=== PATIENT | female | born 1995 | race Caucasian/White ===

== ENCOUNTER 2018-12-22 18:33 | Observation (INO) ==
[2018-12-22] MEDS ORDERED: 0.9 % Sodium Chloride 1,000 ML IVC ONE (20:10)
[2018-12-22 21:10] LABS: BUN/Creatinine Ratio 11 (6-26); Blood Urea Nitrogen 7 mg/dL (6-20); Carbon Dioxide 23 mEq/L (23-29); Chloride 108 mEq/L (98-107); Glucose 78 mg/dL (70-105); Osmolality,Calculated 289 (280-300); Potassium 4.1 mEq/L (3.5-5.1); Sodium 141 mEq/L (136-145); eGFR For African Americans > 60 (> 60); eGFR For Non-African Americans > 60 (> 60)
[2018-12-22 21:16] LABS: Bilirubin,Urine Negative (Negative); Blood,Urine Negative (Negative); Glucose,Urine (UA) Normal (Normal); Ketones,Urine Negative (Negative); Leukocyte Esterase,Urine Small (Negative); Nitrite,Urine Positive (Negative); Protein,Urine Negative (Neg-Trace); Specific Gravity,Urine 1.021 (1.010-1.025); Urobilinogen,Urine Normal (Normal)
[2018-12-22 21:17] LABS: Bacteria,Urine Many per hpf (None-Few); Hyaline Casts,Urine None Seen per lpf (None-Few); Squamous Epithelial Cell,Urine Many per lpf (None-Few)
[2018-12-22 21:19] LABS: Clarity,Urine Slightly Hazy (Clear); Color,Urine Yellow (Yellow)
--- NOTE | 2018-12-22 21:26 | Emergency Department Note ---
Disposition Clinical Impression: Seizure, Weakness Closed head injury Qualifiers: Encounter type: initial encounter Qualified Code(s): S09.90XA - Unspecified injury of head, initial encounter Abdominal pain Qualifiers: Abdominal location: generalized Qualified Code(s): R10.84 - Generalized abdominal pain Disposition: Admitted As Inpatient Condition: Fair Instructions: Abdominal Pain (ED), Recurrent Seizures in Adults (ED) Referrals: Ame Gonsalez MD [Partnered Physician] - [facility] [Outside] Forms: ED Satisfaction Letter Time of Disposition: 22:40 General Adult HPI - General Chief complaint: ED Syncope Stated complaint: Syncope ,Vomiting, Abdominal pain Time Seen by Provider: 12/22/18 19:30 Source: patient Limitations: no limitations Nursing Notes Reviewed: Yes Vital Signs Reviewed: Yes - History of Present Illness HPI Narrative: She has a history of seizures but is not taking her medication because she cannot afford it and she did have one seizure 3 days ago to yesterday and then 3 today. She did fall and hit her head. Does have some numbness and some weakness of the right side of her body and this has been present for the last 3 days. She did have urinary continence but no biting of the tongue or blood in the mouth. No fevers. Has had some vomiting and diarrhea. Has had some blood in the stool. Social history: Smoker, occasional alcohol, no drugs Pain Scale: 6 - Related Data Previous Rx's Medication Instructions Recorded Dicyclomine [Bentyl] 10 mg PO QID #8 capsule 12/21/18 LevETIRAcetam [Keppra] 500 mg PO BID #14 tablet 12/21/18 Omeprazole [PriLOSEC] 20 mg PO BIDAC #14 cap 12/21/18 Ondansetron ODT [Zofran ODT] 4 mg SL Q4HR #12 tab.rapdis 12/21/18 Allergies Allergy/AdvReac Type Severity Reaction Status Date / Time prednisone AdvReac See Verified 09/22/18 14:58 Comments All systems ED: reviewed and negative except as stated. Past Medical History - Past Medical History Medical history: Reports: asthma, seizures Surgical history: Reports: no surgical history Psychiatric history: Reports: anxiety, bipolar, depression VIDEO INTERN history: Reports: other - Social History Smoking Status: Current every day smoker Smokeless Tobacco Status: No Alcohol use: Reports: occasionally Drug use: Reports: marijuana Physical Exam CONSTITUTIONAL: Well-appearing; well-nourished; A&O X3, in no apparent distress HEAD: Normocephalic; atraumatic. EYES: PERRL, EOMI, no scleral icterus NOSE: The nose is normal in appearance without rhinorrhea NECK: Supple without rigidity, no [place] RESP: Normal chest excursion with respiration; breath sounds clear and equal bilaterally; no wheezes, rhonchi, or rales CARD: Regular rhythm, without murmurs, rub or gallop ABD: Non-distended; with moderate generalized discomfort but more discomfort in the lower abdomen which is symmetric. The upper abdomen has minimal discomfort. The entire abdomen is soft, without rigidity, rebound or guarding. Normal appearance SKIN: Normal for age and race; warm and dry; no apparent lesions, no rash NEUROLOGICAL: Patient is alert and oriented times three. Cranial nerves III- XII are intact. Sensory and motor functions are intact. Strength is decreased on the right side lower extremity flexion and extension 4/5 but upper extremity is 5/5. Finger to nose testing is equal and normal bilaterally. - General Limitations: no limitations General appearance: alert, in no apparent distress Course Vital Signs Temperature 98.7 F 12/22/18 18:57 Pulse Rate 78 12/22/18 18:57 Respiratory Rate 18 12/22/18 18:57 Blood Pressure 129/86 12/22/18 18:57 O2 Sat by Pulse Oximetry 100 12/22/18 18:57 Temperature 98.7 F 12/22/18 18:57 Pulse Rate 64 12/22/18 19:43 Respiratory Rate 16 12/22/18 19:43 Blood Pressure 112/83 12/22/18 19:43 O2 Sat by Pulse Oximetry 97 12/22/18 19:43 Oxygen Delivery Oxygen Delivery Room Air Medical Decision Making - [facility] Narrative Medical decision making narrative: Patient does have residual right-sided weakness which is unusual for seizure and for that reason she will be admitted. Head CT is pending. I just ordered an abdominal CT after the exam showed that she has significant generalized discomfort. We are waiting for the urine sample Wilmer the test. She is sexually active with her and she does not use control. Results pending. I did review the EKG showing normal sinus rhythm with a rate of 71 without acute ischemic change [address] Gonsalez who rec generic keppra 500mg BID with first dose to be given here and I did give 1000 mg here. He said he will see her in the office a nd so what I will do is have her get only one week's worth of the medicine and she can call Tuesday for an appointment to be seen the beginning of the week and they can help her with either yazmin medications or lower cost medications. Patient will be discharged. I did review the CT result. I do not see any bleeding or anything that required surgical repair. She states subjectively her abdominal pain significant improved. Head CT did not show any bleeding. She does have a headache and I will give her some Tylenol patient is bright and alert and comfortable in the bed. She is ambulatory. I did see her multiple times. She will be discharged. 2239 The patient has residual right-sided weakness and I did go back and reassessment further discussion. Whereas one consideration would have been for discharge with the fact that she had the syncopal episode here and the recurrent right-s ided weakness safer course would be to have her admitted and I did discuss with her this plan and she is in agreement. I do have the hospitalist paged. It is concerning also for multiple seizures as well as the syncopal episode that she had did not involve seizure activity when she was in the bathroom here. 4 I did speak with the hospitalist who accepts the patient for admission 1132 - Medical Records Medical records reviewed: Yes I reviewed the patient's medical records. - Lab Data Lab results reviewed: Yes I reviewed the patient's lab results. Result diagrams: 12/22/18 21:56 12/22/18 20:38 Lab Results 12/22/18 12/22/18 12/22/18 Range/Units 20:38 20:38 21:00 WBC (4.3-11.1) K/mcL RBC (3.82-4.97) M/mcL Hgb (11.5-15.4) g/dL Hct (35.3-44.9) % MCV (83.0-100.0) fL MCH (28.0-33.3) pg MCHC (31.6-35.5) g/dL RDW (11.5-14.5) % Plt Count (140-400) K/mcL MPV (9.4-12.4) fL Sodium 141 (136-145) mEq/L Potassium 4.1 (3.5-5.1) mEq/L Chloride 108 H (98-107) mEq/L Carbon Dioxide 23 (23-29) mEq/L BUN 7 (6-20) mg/dL Creatinine 0.63 (0.60-1.20) mg/dL Est GFR ( Amer) > 60 (> 60) Est GFR (Non-Af Amer) > 60 (> 60) BUN/Creatinine Ratio 11 (6-26) Glucose 78 (70-105) mg/dL Calculated Osmolality 289 (280-300) Calcium 10.0 (8.6-10.3) mg/dL Urine Color Yellow (Yellow) Urine Clarity Slightly Hazy (Clear) Urine pH 7.0 (5.0-8.0) pH Units Ur Specific [place] 1.021 (1.010-1.025) Urine Protein Negative (Neg-Trace) mg/dL Urine Glucose (UA) Normal (Normal) mg/dL Urine Ketones Negative (Negative) mg/dL Urine Blood Negative (Negative) Urine Nitrite Positive A (Negative) Urine Bilirubin Negative (Negative) Urine Urobilinogen Normal (Normal) mg/dL Ur Leukocyte Esterase Small H (Negative) Urine Microscopic RBC 5-15 H (0-3) per hpf Urine Microscopic WBC 5-15 H (0-3) per hpf Ur Squamous Epith Cells Many H (None-Few) per lpf Urine Bacteria Many H (None-Few) per hpf Hyaline Casts None Seen (None-Few) per lpf Urine Test (Negative) Specimen Rejected Clotted 12/22/18 12/22/18 Range/Units 21:00 21:56 WBC 8.6 (4.3-11.1) K/mcL RBC 4.63 (3.82-4.97) M/mcL Hgb 13.9 (11.5-15.4) g/dL Hct 40.3 (35.3-44.9) % MCV 87.0 (83.0-100.0) fL MCH 30.0 (28.0-33.3) pg MCHC 34.5 (31.6-35.5) g/dL RDW 12.0 (11.5-14.5) % Plt Count 138 L (140-400) K/mcL MPV 11.6 (9.4-12.4) fL Sodium (136-145) mEq/L Potassium (3.5-5.1) mEq/L Chloride (98-107) mEq/L Carbon Dioxide (23-29) mEq/L BUN (6-20) mg/dL Creatinine (0.60-1.20) mg/dL Est GFR ( Amer) (> 60) Est GFR (Non-Af Amer) (> 60) BUN/Creatinine Ratio (6-26) Glucose (70-105) mg/dL Calculated Osmolality (280-300) Calcium (8.6-10.3) mg/dL Urine Color (Yellow) Urine Clarity (Clear) Urine pH (5.0-8.0) pH Units Ur Specific [place] (1.010-1.025) Urine Protein (Neg-Trace) mg/dL Urine Glucose (UA) (Normal) mg/dL Urine Ketones (Negative) mg/dL Urine Blood (Negative) Urine Nitrite (Negative) Urine Bilirubin (Negative) Urine Urobilinogen (Normal) mg/dL Ur Leukocyte Esterase (Negative) Urine Microscopic RBC (0-3) per hpf Urine Microscopic WBC (0-3) per hpf Ur Squamous Epith Cells (None-Few) per lpf Urine Bacteria (None-Few) per hpf Hyaline Casts (None-Few) per lpf Urine Test Negative (Negative) Specimen Rejected - Radiology Data Radiology results reviewed: Yes I reviewed the patient's radiology results.
[2018-12-22 22:06] LABS: Hematocrit 40.3 % (35.3-44.9); Hemoglobin 13.9 g/dL (11.5-15.4); Mean Corpuscular HGB Conc 34.5 g/dL (31.6-35.5); Mean Platelet Volume 11.6 fL (9.4-12.4); Platelet Count 138 K/mcL (140-400); Red Blood Count 4.63 M/mcL (3.82-4.97); White Blood Count 8.6 K/mcL (4.3-11.1)
[2018-12-22] MEDS ORDERED: cephALEXin 250 MG CAPSULE PO ONE (22:36)
[2018-12-22] MEDS ORDERED: levETIRAcetam 250 MG TABLET PO ONE (23:15)
[2018-12-23] MEDS ORDERED: Ondansetron 4 MG/2 ML VIAL IVP PRN (03:21)
[2018-12-23] MEDS ORDERED: Naloxone 0.4 MG/ML INJ IVP PRN (03:21)
[2018-12-23] MEDS ORDERED: *HR* LORazepam 2 MG/ML VIAL IVP PRN (03:28)
[2018-12-23 04:44] LABS: Amphetamine Screen,Urine Negative ng/mL (Cutoff=1000); Barbiturate Screen,Urine Negative ng/mL (Cutoff=200); Benzodiazepines Screen,Urine Negative ng/mL (Cutoff=200); Cannabinoid Screen,Urine Positive ng/mL (Cutoff = 50); Cocaine Screen,Urine Negative ng/mL (Cutoff= 300); Opiate Screen,Urine Negative ng/mL (Cutoff=300); Phencyclidine Screen,Urine Negative ng/mL (Cutoff=25)
--- NOTE | 2018-12-23 05:38 | Internal Med History&Physical ---
Date of Encounter: 12/23/18 Time of Encounter: 03:15 Internal Medicine - H&P: HPI Chief complaint: seizures; weakness Admitted From: Emergency Dept Plans for Post Hospital Care: Home History of present illness: Ms. Ludwig is a 23 year old female who [facility] with complaints of several seizures in the last 2-3 days. She has a history of known seizure disorder and now presents with frequent/recurrent seizures. Workup in ER was essentially negative, but the patient complained of numbness and tingling to both legs below her waist. She has been noncompliant with her medications and has not been on her seizure medications for 6 months due to lack of healthcare coverage and financial reasons. She was therefore admitted to hospitalist service for ongoing treatment of her seizure disorder and neurology consultation. Upon my assessment of the patient, patient was alert, in no distress, and niya eared to be inappropriately excited and happy to be hospitalized. She was quite talkative, dramatic in conversation, and appeared to be overly zealous about her seizure disorder. When asked about her seizures, she described them as "not your typical seizures". She she showed me a video on her phone of her having a seizure. This video showed her eyes rolling around and blinking frequently. I could not tell if this was purposeful or true involuntary eye rolling and eye blinking activity. However, she seemed inappropriately proud of her video. She then went on to inform me that she had severe numbness, tingling, and loss of motor function in her legs, predominantly on the right side. When I focused my exams on her legs, she would not move her right leg or foot. However, when I focused my exam to her torso and her conversation, she was freely moving both her legs around without difficulty. As such, I am starting to believe there is some fictitious component to her seizure disorder. She, again, appears to exhibit some duy in being hospitalized. She then goes on to tell me that almost all her family members have had cerebral aneurysms and that two distant members have from such neurovascular compromise. She was loaded on Keppra in the ER and consultation was made with Dr. Gonsalez by the ER staff. I will order an MRI of her brain and order MRA of the head and neck to complete the workup. I will defer any further antiepileptic medications to neurology. However, based upon initial history and exam, I was concerned that there may be more of a psychological component to her seizure than actually neurologic in etiology. Past Med Surg Social Fam HX - Past Medical History Attestation: Yes The following information was validated with the patient. Source: patient, old records reviewed Medical history: asthma, seizures Additional medical history: Pt states she has been diagnosed with Chrons desease, hypoglycemia Psychiatric history: anxiety, bipolar, depression - Past Surgical History Surgical History: no surgical history Additional surgical history: tooth removal in 2013 - Social History Smoking Status: Current every day smoker Packs per day: 1/2 Smokeless Tobacco Status: No Alcohol use: occasionally Drug use: marijuana Current living situation: Home, With Family Activity Level: Independent ambulation Recent Out of Country Travel Within the Last 8 Weeks: No - Family History Father Living Status: Still Living Hx Family Cardiac Disorders: Yes Hx Family Endocrine Disorder: Yes Mother Adopted: No Living Status: Still Living Hx Family Cardiac Disorders: Yes (HTN) Internal Medicine - H&P: Meds Dicyclomine [Bentyl] 10 mg PO QID #8 capsule 12/21/18 [Rx] LevETIRAcetam [Keppra] 500 mg PO BID #14 tablet 12/21/18 [Rx] Omeprazole [PriLOSEC] 20 mg PO BIDAC #14 cap 12/21/18 [Rx] Ondansetron ODT [Zofran ODT] 4 mg SL Q4HR #12 tab.rapdis 12/21/18 [Rx] Allergy/AdvReac Type Severity Reaction Status Date / Time prednisone AdvReac See Verified 09/22/18 14:58 Comments - Constitutional Constitutional: no chills, no fever(s), no night sweats - EENT Eyes: no blurry vision, no change in vision Ears: no ear pain, no tinnitus Nose, mouth and throat: no nasal congestion, no sinus pressure, no sore throat - Cardiovascular Cardiovascular ROS IM: no chest pain, no diaphoresis, no dyspnea - Respiratory Respiratory: no cough, no chest congestion, no excessive phlegm production, no change in phlegm color, no pain with cough - Gastrointestinal Gastrointestinal: no abdominal pain, no diarrhea, no melena, no vomiting - Genitourinary Genitourinary: no dysuria, no flank pain, no hematuria - Musculoskeletal Musculoskeletal ROS IM: no arthralgias, no back pain - Integumentary Integumentary IM: no rash, no jaundice - Neurological Neurological ROS: convulsions, headache(s), no dizziness, no focal weakness, no frequent falls, no loss of vision, no memory loss - Psychiatric Psychiatric: anxiety, behavioral changes - Endocrine Endocrine IM: no polydipsia, no polyuria - Hematologic/Lymphatic Hematologic/Lymphatic: lymphadenopathy - Allergic/Immunologic Allergic/Immunologic: no wheezing, no GI upset with certain foods - Constitutional Vitals: Temp Pulse Resp BP Pulse Ox 98.3 F 69 18 122/65 97 12/23/18 03:06 12/23/18 03:06 12/23/18 03:06 12/23/18 03:06 12/23/18 03:06 General appearance: Present: cooperative, A&O X 3, pleasant, no acute distress, answers questions appropriately Exam: appears overly zealous - Head Head exam: Present: atraumatic, normal inspection - Eye Eye exam: Present: EOMI, PERRL. Absent: scleral icterus Pupils: Present: normal accommodation - ENT ENT exam: Present: mucous membranes dry, normal exam, normal oropharynx - Neck Neck exam general surgery: Present: full ROM, supple, trachea midline. Absent: lymphadenopathy, tenderness, nuchal rigidity, thyromegaly - Respiratory Respiratory exam: Present: CTAB. Absent: chest wall tenderness, rales, rhonchi, wheezes - Cardiovascular Cardiovascular exam: Present: RRR, +S1, +S2. Absent: diastolic murmur, systolic murmur - GI/Abdominal GI/Abdominal exam: Present: normal bowel sounds, soft. Absent: guarding, hepatomegaly, mass, rebound, splenomegaly, tenderness - Extremities Exam Extremities exam: Present: full ROM, normal capillary refill, warm, radial p ulses palpable and symmetrical. Absent: calf tenderness, joint swelling, pedal edema, tenderness - Back Exam Back exam: Present: normal inspection. Absent: CVA tenderness (L), CVA tenderness (R) - Neurological Exam Neurological exam: Present: alert, CN II-XII intact, oriented X3, reflexes normal, no focal deficits, strengths equal and symetr throughout. Absent: facial droop, speech deficit - Psychiatric Psychiatric exam: Present: manic (appears to be manic). Absent: depressed - Skin Skin exam: Present: dry, intact, warm Internal Med - H&P Results - Labs CBC & Chem 7: 12/22/18 21:56 12/22/18 20:38 Labs: Short CBC 12/22/18 Range/Units 21:56 WBC 8.6 (4.3-11.1) K/mcL Hgb 13.9 (11.5-15.4) g/dL Hct 40.3 (35.3-44.9) % Plt Count 138 L (140-400) K/mcL BMP 12/22/18 20:38 Sodium 141 Potassium 4.1 Chloride 108 H Carbon Dioxide 23 BUN 7 Creatinine 0.63 Glucose 78 Calcium 10.0 Urine 12/22/18 Range/Units 21:00 Urine Color Yellow (Yellow) Urine Clarity Slightly Hazy (Clear) Urine pH 7.0 (5.0-8.0) pH Units Ur Specific [place] 1.021 (1.010-1.025) Urine Protein Negative (Neg-Trace) mg/dL Urine Glucose (UA) Normal (Normal) mg/dL - Impressions ITS Impressions Head CT 12/22/18 20:09 IMPRESSION: No acute intracranial abnormality. D/ / Leida Whyte Cha, MD / Leida Whyte Cha, MD Interpreting Provider: Leida Whyte Cha, MD Abdomen/Pelvis CT 12/22/18 21:23 IMPRESSION: Minimal increased density within the subcutaneous fat within the abdomen posterior to the colon. There are also focal areas of increased density in the subcutaneous fat of the right posterolateral abdominal wall. Findings could be related to soft tissue contusion given history of trauma. Correlation is recommended. Ovoid fatty density within the supraumbilical anterior abdominal wall which could represent fat necrosis, new since the prior study. Short-term follow-up in 3 months could be considered. D/ / Leida Whyte Cha, MD / Leida Whyte Cha, MD Interpreting Provider: Leida Whyte Cha, MD - Assessment and Plan (1) Seizure Current Visit: Yes Status: Acute Assessment and plan: 1. Continue Keppra. 2. Consult Neurology. 3. MRI head and MRA head and Neck given FH of cerebral aneurysms. 4. Consider EEG. 5. If above work-up and treatment negative, may consider psychiatry consultation. (2) DVT prophylaxis Current Visit: Yes Status: Acute Assessment and plan: 1. EPCD's.
[2018-12-23 06:10] LABS: Basophils % 0.3 %; Eosinophils # 0.1 K/mcL (0.0-0.6); Eosinophils % 1.4 %; Hematocrit 38.6 % (35.3-44.9); Hemoglobin 13.1 g/dL (11.5-15.4); Immature Granulocytes % 0.3 % (0-4); Lymphocytes # 2.4 K/mcL (0.6-4.6); Lymphocytes % 33.8 %; Mean Corpuscular HGB Conc 33.9 g/dL (31.6-35.5); Mean Corpuscular Hemoglobin 30.1 pg (28.0-33.3); Mean Corpuscular Volume 88.7 fL (83.0-100.0); Mean Platelet Volume 11.2 fL (9.4-12.4); Monocytes # 0.5 K/mcL (0.0-1.3); Monocytes % 6.3 %; Neutrophils # 4.2 K/mcL (1.6-8.9); Platelet Count 178 K/mcL (140-400); Red Blood Count 4.35 M/mcL (3.82-4.97); Segmented Neutrophils % 57.9 %; White Blood Count 7.2 K/mcL (4.3-11.1)
[2018-12-23 06:19] LABS: INR 1.2; Prothrombin Time 13.1 Seconds (9.4-12.1)
[2018-12-23 06:21] LABS: Activated Partial Thrombo Time 33.3 Seconds (26.0-36.0)
[2018-12-23] MEDS: Acetaminophen 325 MG TABLET PO PRN ×2 (06:24→23:53)
[2018-12-23 06:26] LABS: Alanine Aminotransferase 17 Units/L (7-52); Albumin 4.2 g/dL (3.5-5.7); Albumin/Globulin Ratio 2.2 (1.1-2.2); Alkaline Phosphatase 69 Units/L (34-104); Aspartate Amino Transferase 13 Units/L (13-39); BUN/Creatinine Ratio 15 (6-26); Bilirubin,Total 0.3 mg/dL (0.3-1.0); Blood Urea Nitrogen 9 mg/dL (6-20); Calcium 8.9 mg/dL (8.6-10.3); Carbon Dioxide 22 mEq/L (23-29); Chloride 108 mEq/L (98-107); Globulin 1.9 g/dL (2.4-3.5); Glucose 95 mg/dL (70-105); Magnesium 1.9 mg/dL (1.6-2.6); Osmolality,Calculated 288 (280-300); Potassium 3.6 mEq/L (3.5-5.1); Sodium 140 mEq/L (136-145); Total Protein 6.1 g/dL (6.4-8.9); eGFR For African Americans > 60 (> 60); eGFR For Non-African Americans > 60 (> 60)
[2018-12-23] MEDS: 0.9 % Sodium Chloride 1,000 ML IVC SCH ×2 (06:29→17:12)
[2018-12-23] MEDS: levETIRAcetam 250 MG TABLET PO SCH ×2 (11:39→20:52)
--- NOTE | 2018-12-23 14:42 | Neurology - Consult Note ---
Date of Encounter: 12/23/18 Time of Encounter: 14:39 Assessment and Plan (1) Breakthrough seizure Current Visit: Yes Status: Acute This patient apparently had a history of seizure disorder for quite some time was on Keppra that was helping but she ran out of the medication because of the insurance issues and is been out of medication for more than 8 months and having these increasing seizures She had been restarted on the Keppra I have suggested to continue on it should be taking 500 mg twice a day. She already had an MRI of the brain That did not show any acute abnormality in particularly no evidence of any temporal lobe sclerosis ( though patient mentioned that she was told that she has a history of brain swelling ?? ) No evidence of any swelling or no evidence of any acute abnormality on MRI of the brain At the same time no evidence of any cerebral aneurysm At this time do not think doing an EEG change the prognosis or would help anyth ing in the diagnosis Suggest to continue on the current dose of Keppra 500 mg twice a day Patient should be on seizure precautions as well as driving restrictions, as well as precautions being on antiepileptic medication Also recommend taking folic acid 1 mg daily on a regular basis As MRI of the brain is negativ and currently she is a stable if she remains seizure-free she could be discharged from neurology standpoint with follow-up in neurology in 3-4 weeks She already had a epileptic neurologist at [facility] suggest follow-up with them She also need a follow-up appointment with a psychiatrist as well (2) History of bipolar disorder Current Visit: Yes Status: Acute According to the patient she has an history of manic bipolar disorder has been out of her medication including Zoloft and Xanax that she was on in the past and having increasing behavioral issues and symptoms perhaps could be playing a role in her frequent seizures as some of them especially the video she has does not look like a typical seizures, so 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 Ludwig is a 23 year old female admitted via ER with complaints of several seizures in the last 2-3 days. She has a history of known seizure disorder and now presents with frequent/recurrent seizures. Workup in ER was essentially negative, but the patient complained of numbness and tingling to both legs below her waist. She has been noncompliant with her medications and has not been on her seizure medications for 6 months due to lack of healthcare coverage and fi nancial reasons. She was therefore admitted to hospitalist service for ongoing treatment of her seizure disorder and neurology consultation. When asked about her seizures, she described them as "not your typical seizures". She she showed me a video on her phone of her having a seizure. This video showed her eyes rolling around and blinking frequently. some semi purposeful or true involuntary eye rolling and eye blinking activity. she was complaiing of numbness, tingling, and loss of motor function in her legs, predominantly on the right side. that has resolved now, She was loaded on Keppra in the ER According to the patient she has an history of these seizures since age of 14 and had been on medication since then but recently about 8 months ago she lost her insurance and then out of the medication and not been able to see her neurologist who she has seen at [facility] She is been out of medication for more than 8 months now, at the same time she is also out of her bipolar medication as well and noticing increasing symptoms in her mood and behavior As far as seizures are she get generalized tonic-clonic seizures some of them are associated with urinary incontinence other was are atypical with blinking of the eyes which she has a recording of it Past Med Surg Social Fam HX - Past Medical History Medical history: asthma, seizures Additional medical history: Pt states she has been diagnosed with Chrons desease, hypoglycemia Psychiatric history: anxiety, bipolar, depression - Past Surgical History Surgical History: no surgical history Additional surgical history: tooth removal in 2013 - Social History Smoking Status: Current every day smoker Packs per day: 1/2 Smokeless Tobacco Status: No Alcohol use: occasionally Drug use: marijuana - Family History Father Living Status: Still Living Hx Family Cardiac Disorders: Yes Hx Family Endocrine Disorder: Yes Mother Adopted: No Living Status: Still Living Hx Family Cardiac Disorders: Yes (HTN) Medications and Allergies Dicyclomine [Bentyl] 10 mg PO QID #8 capsule 12/21/18 [Rx] LevETIRAcetam [Keppra] 500 mg PO BID #14 tablet 12/21/18 [Rx] Omeprazole [PriLOSEC] 20 mg PO BIDAC #14 cap 12/21/18 [Rx] Ondansetron ODT [Zofran ODT] 4 mg SL Q4HR #12 tab.rapdis 12/21/18 [Rx] Allergy/AdvReac Type Severity Reaction Status Date / Time prednisone AdvReac See Verified 09/22/18 14:58 Comments All Systems: The remainder of the systems were reviewed and are negative Physical Examination - Vital Signs Vital Signs: Initial Vital Signs Temp Pulse Resp BP Pulse Ox 98.7 F 78 18 129/86 100 12/22/18 18:57 12/22/18 18:57 12/22/18 18:57 12/22/18 18:57 12/22/18 18:57 - Exam Exam: GENERAL: Comfortable in no acute distress, talkative anxious slightly hyperactive HEENT: Normal LUNGS: CTA HEART: RRR, S1 S2 Audible, no murmur EXTREMITIES: No Pedal edema. DETAILED NEUROLOGICAL EXAMINATION: MENTAL STATUS: Oriented to person, place, date and situation. Memory: knows the President, Aware of recent events Recent Memory Intact, Attention span is normal Cranial Nerve Examination: CN - II: Visual Acuity, Field of Vision Normal, Fundus examination: No disk edema, Pupils- size shape reaction to light and accommodation: All normal. CN III, IV, : External ocular movements were intact, Pupils were reactive, Nodrooping of the eyelids CN V: Sensation over the face to light touch and pinprick all normal. Corneal reflexes not tested, jaw jerk normal. CN VII: No facial asymmetry, no flattening of nasolabial folds, no difficulty in closing the eyes, no loss of forehead wrinkles, no difficulty in eye-closure, frowning raising eyebrows. CNVIII: No significant hearing loss CN IX, X: Uvula centralized not deviated, Gag reflex: Not tested CN X1: Sternocleidomastoid, trapezius, normal or evidence of any weakness. CN X11: No Dysarthria, no wasting or fibrilation f tongue muscles, no deviation, tongue muscle strength normal. Motor examination: No hypertrophy, tone was normal, power grade 0-5 Upper limbs Proximal- No difficulty in lifting the arms above the head. Distal- No weakness in distal muscles On formal testing 5/5 all over Lower limbs On formal testing 5/5 all over Coordination: [id number] normal. Target pursuit normal finger tapping normal, Rapid alternating moment of wrist normal Sensory system: Superficial sensations- Touch normal. Pain- Pinprick, Temperature all normal, Deep sensation normal, Joint position sense normal. Cortical sensation, Tactile discrimination, localization and extinction all normal. Deep tendon reflexes. Symmetrical bilateral, No evidence of Babinski. No sign of meningeal irritation Gait Examination: Deferred - Constitutional General appearance: comfortable Results - Laboratory Findings CBC and BMP: 12/23/18 05:32 12/23/18 05:32 Abnormal lab findings: Abnormal lab results Plt Count 138 K/mcL (140-400) L 12/22/18 21:56 PT 13.1 Seconds (9.4-12.1) H 12/23/18 05:32 Chloride 108 mEq/L (98-107) H 12/23/18 05:32 Carbon Dioxide 22 mEq/L (23-29) L 12/23/18 05:32 POC Glucose 116 mg/dL (70-99) H 12/23/18 01:50 6.1 g/dL (6.4-8.9) L 12/23/18 05:32 1.9 g/dL (2.4-3.5) L 12/23/18 05:32 Positive (Negative) A 12/22/18 21:00 Ur Leukocyte Esterase Small (Negative) H 12/22/18 21:00 5-15 per hpf (0-3) H 12/22/18 21:00 5-15 per hpf (0-3) H 12/22/18 21:00 Ur Squamous Epith Cells Many per lpf (None-Few) H 12/22/18 21:00 Many per hpf (None-Few) H 12/22/18 21:00 U Marijuana (THC) Screen Positive ng/mL (Cutoff = 50) H 12/23/18 04:20 - Diagnostic Findings Additional findings: MRI of the brain as well as MRA of the head showed 1. No acute stroke, intracranial hemorrhage or mass effect. 2. The mesial temporal lobes/hippocampi are grossly symmetric in size and signal given patient positioning. No evidence of tumor, infarct, AVM, cavernoma or obvious heterotopia. 3. Unremarkable MRA of the head and neck. No cerebral aneurysm. Consult Discharge Plan - Plan Referrals: NONE,PCP [Primary Care Provider] -
--- NOTE | 2018-12-23 14:54 | Event Note ---
Date of Encounter: 12/23/18 Time of Encounter: 14:54 I have seen and evaluated the patient at bedside. H&P, and image report reviewed. patient hemodynamically stable. will continue to follow up.
[2018-12-23 20:00] VITALS: BP 118/72
[2018-12-23] MEDS ORDERED: Nicotine 2 MG GUM BC PRN (21:43)
[2018-12-23] MEDS ORDERED: *HR* LORazepam 0.5 MG TABLET PO ONE (23:23)
--- NOTE | 2018-12-24 03:16 | Event Note ---
Date of Encounter: 12/24/18 Time of Encounter: 03:14 Alerted by nurse that patient was requesting to leave AMA. Discussed with patient at bedside who remains alert and oriented requesting to leave so she can take care of her sick child and was very apologetic. Informed patient leaving against medical advice can result in worsening of her symptoms and or . She verbalized understanding. Nurse removed IV and patient signed AMA form.
--- NOTE | 2018-12-24 08:53 | Discharge Summary ---
Orders not resulted at time of discharge: Pending orders 12/22/18 20:07 ECG 12 lead ECG [ECG] Stat 12/23/18 01:41 POC Glucometer Test [POC] Stat 12/23/18 06:00 ECG 12 lead ECG [ECG] AM 0600 Date of Encounter: 12/24/18 Time of Encounter: 08:51 - Discharge Diagnosis (1) Seizure Priority: Primary Status: Acute (2) DVT prophylaxis Priority: Secondary Status: Acute (3) History of bipolar disorder Priority: Secondary Status: Chronic Hospital course: Ms. Ludwig is a 23 year old female PMH of seizures and bipolar disorder. patient admitted to the hospital due to seizures like activity. extensive image work up done. neurology evaluated the patient. Patient left AMA. - Time Spent with Patient Total time spent providing and/or coordinating discharge services: Time spent: Greater than 30 minutes (35) - Discharge Medications Prescriptions: Continued Omeprazole [PriLOSEC] 20 mg PO BIDAC #14 cap Dicyclomine [Bentyl] 10 mg PO QID #8 capsule LevETIRAcetam [Keppra] 500 mg PO BID #14 tablet Ondansetron ODT [Zofran ODT] 4 mg SL Q4HR #12 tab.rapdis Home Medications: Dicyclomine [Bentyl] 10 mg PO QID #8 capsule 12/21/18 [Rx] LevETIRAcetam [Keppra] 500 mg PO BID #14 tablet 12/21/18 [Rx] Omeprazole [PriLOSEC] 20 mg PO BIDAC #14 cap 12/21/18 [Rx] Ondansetron ODT [Zofran ODT] 4 mg SL Q4HR #12 tab.rapdis 12/21/18 [Rx] Allergies/Adverse Reactions: Allergy/AdvReac Type Severity Reaction Status Date / Time prednisone AdvReac See Verified 09/22/18 14:58 Comments Date of admission: 12/22/18 23:42 Primary care physician: PCP NONE Consults: 12/22/18 23:30 Consult to Neurology [CONS] Stat Consulting Provider: [facility] Reason for Consult: seizure Time Notified: 11:31 Call Completed: No 12/23/18 01:25 Consult to Nutrition [CONS] Routine Comment: Consulting Provider: NUTRITION Reason for Dietary Consult: MST Score Consult to Protection Specialist [CONS] Routine Reason for SW Consult: Pt can not afford Keppra for seizures, zoloft and xanax for her manic bipolar/anxiety disorder 12/23/18 03:27 Consult to Physician [CONS] Routine Consulting Provider: Ame Gonsalez I Reason for Consult: seizure d/o; notified by ER staff Call Completed: Yes - Constitutional Vitals: Temp Pulse Resp BP Pulse Ox 98.6 F 62 17 118/72 96 12/23/18 19:59 12/23/18 19:59 12/23/18 19:59 12/23/18 19:59 12/23/18 19:59 General appearance: Present: cooperative, A&O X 3, pleasant, no acute distress, answers questions appropriately Exam: Vitals: Reviewed General: Alert and oriented Skin: Normal color, no rash, no lesions. HEENT: EOM, pupils equal, round and reactive. Cardiovascular: rrr, normal S1 & S2, no rubs, murmurs or gallops. No JVD. Pulse regular. Lungs: CTA b/l, no wheezes or crackles. Abdomen:Soft, non-tender, no rigidity. Extremities:No deformity, no edema or tenderness, no joint swelling or clubbing. Neurological:Normal cognition and motor skills. Pulses:Carotid and radial pulses normal +2. Rest of the physical exam is non contributory - Patient Status Disposition: Left Against Medical Advice Condition: Fair - Discharge Instructions Follow Up With: NONE,PCP [Primary Care Provider] -
--- NOTE | 2018-12-26 09:48 | Electrocardiograph Report ---
[facility] Test Date: 2018-12-22 Pat Name: Sydnee Ludwig Department: [id number] Room: 2NE23 Gender: F Para Machine Operator: : 1995 Requested By: Bowen Pulido Order Number: [id number] Reading MD: Grzegorz Kimbrough Measurements Intervals [place] Rate: 71 P: -34 VA: 191 QRS: 68 QRSD: 78 T: 47 QT: 376 QTc: 409 Interpretive Statements Sinus rhythm Electronically Signed On 12-26-2018 9:47:25 EDT by Grzegorz Kimbrough
== END 2018-12-24 03:19 | disposition left against medical advice (07) ==
LOC: 2NENU 18:33 → EMEROOARM 18:33 → SUATTDRO 23:42 → 2NENU 12-23 00:30
PROVIDERS: ADMIT Pediatrics; ATTEND Internal Medicine

== ENCOUNTER 2018-12-24 18:30 | Observation (INO) ==
[2018-12-24 20:05] LABS: Basophils % 0.3 %; Eosinophils % 0.3 %; Hematocrit 41.1 % (35.3-44.9); Hemoglobin 14.2 g/dL (11.5-15.4); Immature Granulocytes % 0.3 % (0-4); Lymphocytes # 1.4 K/mcL (0.6-4.6); Lymphocytes % 15.9 %; Mean Corpuscular HGB Conc 34.5 g/dL (31.6-35.5); Mean Corpuscular Hemoglobin 30.1 pg (28.0-33.3); Mean Corpuscular Volume 87.3 fL (83.0-100.0); Monocytes # 0.6 K/mcL (0.0-1.3); Monocytes % 6.5 %; Neutrophils # 6.6 K/mcL (1.6-8.9); Platelet Count 197 K/mcL (140-400); Red Blood Count 4.71 M/mcL (3.82-4.97); Red Cell Distribution Width 11.9 % (11.5-14.5); Segmented Neutrophils % 76.7 %; White Blood Count 8.6 K/mcL (4.3-11.1)
[2018-12-24] MEDS ORDERED: Acetaminophen 325 MG TABLET PO ONE (20:24)
[2018-12-24 20:26] LABS: Alanine Aminotransferase 20 Units/L (7-52); Albumin 4.6 g/dL (3.5-5.7); Albumin/Globulin Ratio 2.1 (1.1-2.2); Alkaline Phosphatase 73 Units/L (34-104); Aspartate Amino Transferase 16 Units/L (13-39); BUN/Creatinine Ratio 17 (6-26); Bilirubin,Total 0.7 mg/dL (0.3-1.0); Blood Urea Nitrogen 10 mg/dL (6-20); Calcium 9.3 mg/dL (8.6-10.3); Carbon Dioxide 20 mEq/L (23-29); Chloride 106 mEq/L (98-107); Globulin 2.2 g/dL (2.4-3.5); Glucose 84 mg/dL (70-105); Magnesium 1.8 mg/dL (1.6-2.6); Osmolality,Calculated 286 (280-300); Phosphorous 2.9 mg/dL (2.7-4.5); Potassium 3.8 mEq/L (3.5-5.1); Sodium 139 mEq/L (136-145); Total Protein 6.8 g/dL (6.4-8.9); eGFR For African Americans > 60 (> 60); eGFR For Non-African Americans > 60 (> 60)
[2018-12-24 20:37] LABS: Bilirubin,Urine Negative (Negative); Blood,Urine Negative (Negative); Clarity,Urine Clear (Clear); Color,Urine Yellow (Yellow); Glucose,Urine (UA) Normal (Normal); Ketones,Urine 40 mg/dL (Negative); Leukocyte Esterase,Urine Negative (Negative); Nitrite,Urine Negative (Negative); Protein,Urine Negative (Neg-Trace); Specific Gravity,Urine 1.022 (1.010-1.025); Urobilinogen,Urine Normal (Normal)
--- NOTE | 2018-12-24 20:40 | Emergency Department Note ---
Disposition Clinical Impression: Hx of seizure disorder, Weakness, Numbness, Neck pain Headache Qualifiers: Headache type: unspecified Headache chronicity pattern: acute headache Intractability: not intractable Qualified Code(s): R51 - Headache Disposition: Admitted As Inpatient Condition: Fair Time of Disposition: 21:43 General Adult HPI - General Chief complaint: ED Head Injury Stated complaint: Seizures Time Seen by Provider: 12/24/18 18:33 Source: EMS Mode of arrival: EMS Limitations: altered mental status Nursing Notes Reviewed: Yes Vital Signs Reviewed: Yes - History of Present Illness HPI Narrative: Patient is a 23-year-old female past medical history of bipolar disorder, depression, anxiety, and seizures for which she is noncompliant with her antiepileptics. She presents the ED today after a seizure at home and a fall. She states that she was getting in the shower had a seizure that caused her to fall and she woke up and called the squad. On arrival she is alert and orientated she continues to complain of right-sided weakness and what she calls blotchy numbness. Pain Scale: 7 - Related Data Home Medications Medication Instructions Recorded Confirmed No Known Home Drugs 12/24/18 12/24/18 Allergies Allergy/AdvReac Type Severity Reaction Status Date / Time prednisone AdvReac See Verified 09/22/18 14:58 Comments All systems ED: reviewed and negative except as stated. Review of Systems: As Per HPI Constitutional: Denies: fever, chills Cardiovascular: Denies: chest pain, palpitations Respiratory: Denies: cough, dyspnea, wheezes Gastrointestinal: Denies: abdominal pain, nausea, vomiting, diarrhea Genitourinary: Denies: urgency, dysuria Musculoskeletal: Reports: neck pain. Denies: back pain Integumentary: Denies: rash Neurological: Reports: headache, weakness, numbness. Denies: paresthesias, confusion, abnormal gait, vertigo Past Medical History - Past Medical History Attestation: Yes The following information was validated with the patient. 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 Absent: tenderness - Respiratory Respiratory exam: Present: normal lung sounds bilaterally. Absent: respiratory distress - Cardiovascular Cardiovascular exam: Present: regular rate, normal rhythm, normal heart sounds, +S1, +S2 - Abdominal Exam Abdominal exam: Present: soft, Non-Tender. Absent: tenderness, distention, guarding, rebound, rigidity - Extremities Exam Extremities exam: Present: normal inspection, full ROM, normal capillary refill. Absent: tenderness, pedal edema - Back Exam Back exam: Present: normal inspection, full ROM. Absent: tenderness, CVA tenderness (R), CVA tenderness (L) - Neurological Exam Neurological exam: Present: alert, oriented X3, CN II-XII intact - Expanded Neurological Exam Patient oriented to: Present: person, place, time Speech: Present: fluid speech Cranial nerves: EOM function (II, III, IV, ): Normal, facial sensation (V): No rmal, facial palsy (VII): Normal, gag reflex (IX): Normal, spinal accessory function (XI): Normal, tongue deviation (XII): Normal Cerebellar function: finger to nose: Normal, heel to owens: Normal Motor strength - LUE: 5/5 Motor strength - RUE: 4/5 Motor strength - LLE: 5/5 Motor strength - RLE: 4/5 Sensory exam upper extremity: light touch: Normal Sensory exam lower extremity: light touch: Normal Coma Scale Eye Opening: Spontaneous Coma Scale Motor Response: Obeys Commands Coma Scale Verbal Response: Oriented Coma Scale Total: 15 - Psychiatric Psychiatric exam: Present: normal mood, flat affect - Skin Skin exam: Present: warm, dry, intact, normal color Course Course Narrative: Patient's lab work was unremarkable except for positive drug screen for marijuana. Her head CT and CT of the C-spine were negative. The c-collar was removed see Matt spine was cleared. I discussed with the patient plan to admit her to the hospital for further workup and evaluation of her neurological symptoms. She agrees with that plan. Patient's case was discussed with the hospitalist and they accepted the patient. Vital Signs Temperature 98.6 F 12/24/18 18:41 Pulse Rate 78 12/24/18 18:41 Respiratory Rate 28 12/24/18 18:41 Blood Pressure 121/80 12/24/18 18:41 O2 Sat by Pulse Oximetry 94 12/24/18 18:41 Temperature 98.2 F 12/24/18 22:36 Pulse Rate 77 12/24/18 22:36 Respiratory Rate 18 12/24/18 22:36 Blood Pressure 120/74 12/24/18 22:36 O2 Sat by Pulse Oximetry 98 12/24/18 22:36 Oxygen Delivery Oxygen Delivery Room Air Medical Decision Making - Medical Records Medical records reviewed: Yes I reviewed the patient's medical records. - Lab Data Lab results reviewed: Yes I reviewed the patient's lab results. Result diagrams: 12/24/18 19:28 12/24/18 19:28 Lab Results 12/24/18 12/24/18 12/24/18 Range/Units 19:28 19:28 19:28 WBC 8.6 (4.3-11.1) K/mcL RBC 4.71 (3.82-4.97) M/mcL Hgb 14.2 (11.5-15.4) g/dL Hct 41.1 (35.3-44.9) % MCV 87.3 (83.0-100.0) fL MCH 30.1 (28.0-33.3) pg MCHC 34.5 (31.6-35.5) g/dL RDW 11.9 (11.5-14.5) % Plt Count 197 (140-400) K/mcL MPV 11.0 (9.4-12.4) fL Immature Gran % 0.3 (0-4) % Seg Neutrophils % 76.7 % Lymphocytes % 15.9 % Monocytes % 6.5 % Eosinophils % 0.3 % Basophils % 0.3 % Neutrophils # 6.6 (1.6-8.9) K/mcL Lymphocytes # 1.4 (0.6-4.6) K/mcL Monocytes # 0.6 (0.0-1.3) K/mcL Eosinophils # 0.0 (0.0-0.6) K/mcL Basophils # 0.0 (0.0-0.2) K/mcL Sodium 139 (136-145) mEq/L Potassium 3.8 (3.5-5.1) mEq/L Chloride 106 (98-107) mEq/L Carbon Dioxide 20 L (23-29) mEq/L BUN 10 (6-20) mg/dL Creatinine 0.58 L (0.60-1.20) mg/dL Est GFR ( Amer) > 60 (> 60) Est GFR (Non-Af Amer) > 60 (> 60) BUN/Creatinine Ratio 17 (6-26) Glucose 84 (70-105) mg/dL Calculated Osmolality 286 (280-300) Calcium 9.3 (8.6-10.3) mg/dL Phosphorus 2.9 (2.7-4.5) mg/dL Magnesium 1.8 (1.6-2.6) mg/dL Total Bilirubin 0.7 (0.3-1.0) mg/dL AST 16 (13-39) Units/L ALT 20 (7-52) Units/L Alkaline Phosphatase 73 (34-104) Units/L Serum Total Protein 6.8 (6.4-8.9) g/dL Albumin 4.6 (3.5-5.7) g/dL Globulin 2.2 L (2.4-3.5) g/dL Albumin/Globulin Ratio 2.1 (1.1-2.2) Serum , Qual Negative (Negative) Urine Color (Yellow) Urine Clarity (Clear) Urine pH (5.0-8.0) pH Units Ur Specific [place] (1.010-1.025) Urine Protein (Neg-Trace) mg/dL Urine Glucose (UA) (Normal) mg/dL Urine Ketones (Negative) mg/dL Urine Blood (Negative) Urine Nitrite (Negative) Urine Bilirubin (Negative) Urine Urobilinogen (Normal) mg/dL Ur Leukocyte Esterase (Negative) Urine Opiates Screen (Yuzrcg=296) ng/mL Ur Buprenorphine Scrn (Cutoff=5) ng/mL Ur Barbiturates Screen (Ojabiy=705) ng/mL Ur Phencyclidine Scrn (Cutoff=25) ng/mL Ur Amphetamines Screen (Paoybd=5817) ng/mL U Benzodiazepines Scrn (Esmowc=730) ng/mL Urine Cocaine Screen (Cutoff= 300) ng/mL U Marijuana (THC) Screen (Cutoff = 50) ng/mL Ur Drug Screen Interp 12/24/18 12/24/18 Range/Units 20:16 20:17 WBC (4.3-11.1) K/mcL RBC (3.82-4.97) M/mcL Hgb (11.5-15.4) g/dL Hct (35.3-44.9) % MCV (83.0-100.0) fL MCH (28.0-33.3) pg MCHC (31.6-35.5) g/dL RDW (11.5-14.5) % Plt Count (140-400) K/mcL MPV (9.4-12.4) fL Immature Gran % (0-4) % Seg Neutrophils % % Lymphocytes % % Monocytes % % Eosinophils % % Basophils % % Neutrophils # (1.6-8.9) K/mcL Lymphocytes # (0.6-4.6) K/mcL Monocytes # (0.0-1.3) K/mcL Eosinophils # (0.0-0.6) K/mcL Basophils # (0.0-0.2) K/mcL Sodium (136-145) mEq/L Potassium (3.5-5.1) mEq/L Chloride (98-107) mEq/L Carbon Dioxide (23-29) mEq/L BUN (6-20) mg/dL Creatinine (0.60-1.20) mg/dL Est GFR ( Amer) (> 60) Est GFR (Non-Af Amer) (> 60) BUN/Creatinine Ratio (6-26) Glucose (70-105) mg/dL Calculated Osmolality (280-300) Calcium (8.6-10.3) mg/dL Phosphorus (2.7-4.5) mg/dL Magnesium (1.6-2.6) mg/dL Total Bilirubin (0.3-1.0) mg/dL AST (13-39) Units/L ALT (7-52) Units/L Alkaline Phosphatase (34-104) Units/L Serum Total Protein (6.4-8.9) g/dL Albumin (3.5-5.7) g/dL Globulin (2.4-3.5) g/dL Albumin/Globulin Ratio (1.1-2.2) Serum , Qual (Negative) Urine Color Yellow (Yellow) Urine Clarity Clear (Clear) Urine pH 6.0 (5.0-8.0) pH Units Ur Specific [place] 1.022 (1.010-1.025) Urine Protein Negative (Neg-Trace) mg/dL Urine Glucose (UA) Normal (Normal) mg/dL Urine Ketones 40 H (Negative) mg/dL Urine Blood Negative (Negative) Urine Nitrite Negative (Negative) Urine Bilirubin Negative (Negative) Urine Urobilinogen Normal (Normal) mg/dL Ur Leukocyte Esterase Negative (Negative) Urine Opiates Screen Negative (Xngits=946) ng/mL Ur Buprenorphine Scrn Negative (Cutoff=5) ng/mL Ur Barbiturates Screen Negative (Eqyfdx=263) ng/mL Ur Phencyclidine Scrn Negative (Cutoff=25) ng/mL Ur Amphetamines Screen Negative (Hcsodj=4861) ng/mL U Benzodiazepines Scrn Negative (Okrgmr=230) ng/mL Urine Cocaine Screen Negative (Cutoff= 300) ng/mL U Marijuana (THC) Screen Positive H (Cutoff = 50) ng/mL Ur Drug Screen Interp See Below - Radiology Data Radiology results reviewed: Yes I reviewed the patient's radiology results. Head CT 12/24/18 18:45 IMPRESSION: No acute intracranial abnormality. D/ / Dara Kent MD / Dara Kent MD Interpreting Provider: Dara Kent MD Cervical Spine CT 12/24/18 20:15 IMPRESSION: No acute findings in the cervical spine. D/ / Bowen Brito MD / Bowen Brito MD Interpreting Provider: Bowen Brito MD - EKG Data EKG #1 EKG attestation: Yes I reviewed and interpreted this EKG. EKG results narrative: EKG done at 19:19 shows sinus rhythm at a rate of 77 bpm. Normal axis. Intervals within normal limits. No signs of ST elevation, ST depression or Q waves present.
[2018-12-24 20:54] LABS: Amphetamine Screen,Urine Negative ng/mL (Cutoff=1000); Barbiturate Screen,Urine Negative ng/mL (Cutoff=200); Benzodiazepines Screen,Urine Negative ng/mL (Cutoff=200); Cannabinoid Screen,Urine Positive ng/mL (Cutoff = 50); Cocaine Screen,Urine Negative ng/mL (Cutoff= 300); Opiate Screen,Urine Negative ng/mL (Cutoff=300); Phencyclidine Screen,Urine Negative ng/mL (Cutoff=25)
--- NOTE | 2018-12-24 21:12 | Emergency Department Note ---
Disposition Clinical Impression: Hx of seizure disorder, Weakness, Numbness, Neck pain Headache Qualifiers: Headache type: unspecified Headache chronicity pattern: acute headache Intractability: not intractable Qualified Code(s): R51 - Headache Disposition: Still a Patient Condition: Fair Forms: ED Satisfaction Letter General Adult HPI - General Chief complaint: ED Head Injury Stated complaint: Seizures Time Seen by Provider: 12/24/18 18:33 Source: EMS Mode of arrival: EMS Limitations: no limitations Nursing Notes Reviewed: Yes Vital Signs Reviewed: Yes - History of Present Illness Pain Scale: 7 - Related Data Previous Rx's Medication Instructions Recorded Dicyclomine [Bentyl] 10 mg PO QID #8 capsule 12/21/18 Omeprazole [PriLOSEC] 20 mg PO BIDAC #14 cap 12/21/18 Ondansetron ODT [Zofran ODT] 4 mg SL Q4HR #12 tab.rapdis 12/21/18 Allergies Allergy/AdvReac Type Severity Reaction Status Date / Time prednisone AdvReac See Verified 09/22/18 14:58 Comments Constitutional: Denies: fever, chills Cardiovascular: Denies: chest pain, palpitations Respiratory: Denies: cough, dyspnea, wheezes Gastrointestinal: Denies: abdominal pain, nausea, vomiting, diarrhea Genitourinary: Denies: urgency, dysuria Musculoskeletal: Reports: neck pain. Denies: back pain Integumentary: Denies: rash Neurological: Reports: headache, weakness, numbness. 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 - Social History Smoking Status: Current every day smoker Smokeless Tobacco Status: No Alcohol use: Reports: occasionally Drug use: Reports: marijuana Physical Exam - General Limitations: no limitations General appearance: lethargic Course Vital Signs Temperature 98.6 F 12/24/18 18:41 Pulse Rate 78 12/24/18 18:41 Respiratory Rate 28 12/24/18 18:41 Blood Pressure 121/80 12/24/18 18:41 O2 Sat by Pulse Oximetry 94 12/24/18 18:41 Temperature 98.6 F 12/24/18 18:41 Pulse Rate 78 12/24/18 18:41 Respiratory Rate 28 12/24/18 18:41 Blood Pressure 121/80 12/24/18 18:41 O2 Sat by Pulse Oximetry 94 12/24/18 18:41 Oxygen Delivery Oxygen Delivery Room Air Medical Decision Making - Lab Data Result diagrams: 12/24/18 19:28 12/24/18 19:28 Lab Results 12/24/18 12/24/18 12/24/18 Range/Units 19:28 19:28 19:28 WBC 8.6 (4.3-11.1) K/mcL RBC 4.71 (3.82-4.97) M/mcL Hgb 14.2 (11.5-15.4) g/dL Hct 41.1 (35.3-44.9) % MCV 87.3 (83.0-100.0) fL MCH 30.1 (28.0-33.3) pg MCHC 34.5 (31.6-35.5) g/dL RDW 11.9 (11.5-14.5) % Plt Count 197 (140-400) K/mcL MPV 11.0 (9.4-12.4) fL Immature Gran % 0.3 (0-4) % Seg Neutrophils % 76.7 % Lymphocytes % 15.9 % Monocytes % 6.5 % Eosinophils % 0.3 % Basophils % 0.3 % Neutrophils # 6.6 (1.6-8.9) K/mcL Lymphocytes # 1.4 (0.6-4.6) K/mcL Monocytes # 0.6 (0.0-1.3) K/mcL Eosinophils # 0.0 (0.0-0.6) K/mcL Basophils # 0.0 (0.0-0.2) K/mcL Sodium 139 (136-145) mEq/L Potassium 3.8 (3.5-5.1) mEq/L Chloride 106 (98-107) mEq/L Carbon Dioxide 20 L (23-29) mEq/L BUN 10 (6-20) mg/dL Creatinine 0.58 L (0.60-1.20) mg/dL Est GFR ( Amer) > 60 (> 60) Est GFR (Non-Af Amer) > 60 (> 60) BUN/Creatinine Ratio 17 (6-26) Glucose 84 (70-105) mg/dL Calculated Osmolality 286 (280-300) Calcium 9.3 (8.6-10.3) mg/dL Phosphorus 2.9 (2.7-4.5) mg/dL Magnesium 1.8 (1.6-2.6) mg/dL Total Bilirubin 0.7 (0.3-1.0) mg/dL AST 16 (13-39) Units/L ALT 20 (7-52) Units/L Alkaline Phosphatase 73 (34-104) Units/L Serum Total Protein 6.8 (6.4-8.9) g/dL Albumin 4.6 (3.5-5.7) g/dL Globulin 2.2 L (2.4-3.5) g/dL Albumin/Globulin Ratio 2.1 (1.1-2.2) Serum , Qual Negative (Negative) Urine Color (Yellow) Urine Clarity (Clear) Urine pH (5.0-8.0) pH Units Ur Specific [place] (1.010-1.025) Urine Protein (Neg-Trace) mg/dL Urine Glucose (UA) (Normal) mg/dL Urine Ketones (Negative) mg/dL Urine Blood (Negative) Urine Nitrite (Negative) Urine Bilirubin (Negative) Urine Urobilinogen (Normal) mg/dL Ur Leukocyte Esterase (Negative) Urine Opiates Screen (Wubrdp=536) ng/mL Ur Buprenorphine Scrn (Cutoff=5) ng/mL Ur Barbiturates Screen (Byvvcb=571) ng/mL Ur Phencyclidine Scrn (Cutoff=25) ng/mL Ur Amphetamines Screen (Jtrylz=7290) ng/mL U Benzodiazepines Scrn (Ftosgc=630) ng/mL Urine Cocaine Screen (Cutoff= 300) ng/mL U Marijuana (THC) Screen (Cutoff = 50) ng/mL Ur Drug Screen Interp 12/24/18 12/24/18 Range/Units 20:16 20:17 WBC (4.3-11.1) K/mcL RBC (3.82-4.97) M/mcL Hgb (11.5-15.4) g/dL Hct (35.3-44.9) % MCV (83.0-100.0) fL MCH (28.0-33.3) pg MCHC (31.6-35.5) g/dL RDW (11.5-14.5) % Plt Count (140-400) K/mcL MPV (9.4-12.4) fL Immature Gran % (0-4) % Seg Neutrophils % % Lymphocytes % % Monocytes % % Eosinophils % % Basophils % % Neutrophils # (1.6-8.9) K/mcL Lymphocytes # (0.6-4.6) K/mcL Monocytes # (0.0-1.3) K/mcL Eosinophils # (0.0-0.6) K/mcL Basophils # (0.0-0.2) K/mcL Sodium (136-145) mEq/L Potassium (3.5-5.1) mEq/L Chloride (98-107) mEq/L Carbon Dioxide (23-29) mEq/L BUN (6-20) mg/dL Creatinine (0.60-1.20) mg/dL Est GFR ( Amer) (> 60) Est GFR (Non-Af Amer) (> 60) BUN/Creatinine Ratio (6-26) Glucose (70-105) mg/dL Calculated Osmolality (280-300) Calcium (8.6-10.3) mg/dL Phosphorus (2.7-4.5) mg/dL Magnesium (1.6-2.6) mg/dL Total Bilirubin (0.3-1.0) mg/dL AST (13-39) Units/L ALT (7-52) Units/L Alkaline Phosphatase (34-104) Units/L Serum Total Protein (6.4-8.9) g/dL Albumin (3.5-5.7) g/dL Globulin (2.4-3.5) g/dL Albumin/Globulin Ratio (1.1-2.2) Serum , Qual (Negative) Urine Color Yellow (Yellow) Urine Clarity Clear (Clear) Urine pH 6.0 (5.0-8.0) pH Units Ur Specific [place] 1.022 (1.010-1.025) Urine Protein Negative (Neg-Trace) mg/dL Urine Glucose (UA) Normal (Normal) mg/dL Urine Ketones 40 H (Negative) mg/dL Urine Blood Negative (Negative) Urine Nitrite Negative (Negative) Urine Bilirubin Negative (Negative) Urine Urobilinogen Normal (Normal) mg/dL Ur Leukocyte Esterase Negative (Negative) Urine Opiates Screen Negative (Xpatjr=415) ng/mL Ur Buprenorphine Scrn Negative (Cutoff=5) ng/mL Ur Barbiturates Screen Negative (Fgryuo=377) ng/mL Ur Phencyclidine Scrn Negative (Cutoff=25) ng/mL Ur Amphetamines Screen Negative (Orvoja=3711) ng/mL U Benzodiazepines Scrn Negative (Izmbjb=699) ng/mL Urine Cocaine Screen Negative (Cutoff= 300) ng/mL U Marijuana (THC) Screen Positive H (Cutoff = 50) ng/mL Ur Drug Screen Interp See Below Attestation Statement - Attestation Attestation: I examined this patient and my medical decision-making was reviewed with the Resident Physician. I agree with the documented findings, disposition and treatment plan as described except to the extent set forth below. Patient presents to the ED with a chief complaint of seizure. Patient was admi tted to the hospital for the same thing 2 days ago. She left AMA this morning. She went home. She states that she had a seizure while in the shower. He called 911. It was unwitnessed by anyone else. EMS was unable to obtain any other history. She had no seizure activity for them. She is complaining of falling and hitting her head. Complains of head pain. On exam she is laying in bed. Eyes closed but answers questions appropriately. Moves all extremities. Lungs clear and abdomen soft. Plan. Basic labs. CT head neck.
[2018-12-24] MEDS ORDERED: *HR* LORazepam 2 MG/ML VIAL IVP PRN (23:42)
[2018-12-24] MEDS ORDERED: Naloxone 0.4 MG/ML INJ IVP PRN (23:42)
[2018-12-24] MEDS ORDERED: *HR* Promethazine 25 MG/ML VIAL IVP PRN (23:42)
[2018-12-24] MEDS ORDERED: Acetaminophen 325 MG TABLET PO PRN (23:42)
[2018-12-24] MEDS ORDERED: levETIRAcetam 250 MG TABLET PO SCH (23:53)
[2018-12-25] MEDS: traMADol 50 MG TABLET PO PRN ×2 (00:27→20:29)
[2018-12-25] MEDS: 0.9 % Sodium Chloride w KCl 20 MEQ/1,000 ML MLS IVC SCH ×2 (00:28→08:58)
--- NOTE | 2018-12-25 01:05 | Internal Med History&Physical ---
Date of Encounter: 12/24/18 Time of Encounter: 23:05 Internal Medicine - H&P: HPI Chief complaint: seizure Admitted From: Emergency Dept Plans for Post Hospital Care: Home History of present illness: Ms. Ludwig is a 23 year old female who presents to the ER with recurrent seizure. Patient left AGAINST MEDICAL ADVICE early this morning after she was admitted the night before with recurrent seizures. Patient has history of seizure disorder but has been noncompliant with her medications due to lack of insurance coverage. She was being treated and evaluated by neurology and hospitalist group this last admission when she left AMA. She now returns with recurrent seizure while she was showering this evening. She was reportedly home alone when she was in the shower and suffered a seizure. She does not recall h ow long she was unconscious/postictal. When she came around, she crawled out of the shower to call 911. She underwent workup in the ER and was readmitted to hospitalist service. Upon my assessment of the patient, patient and her are at the bedside. They confirmed above history. She has not had any Keppra today. She and her both describe patient as having increased stress and feel that her seizures are likely exacerbated by her stress and anxiety. She also has a history of bipolar disorder and has been off her medications for 8 months. She would like to go back on bipolar medications she feels that a lot of her seizures are triggered by stress and anxiety. Her confirms the above. She also complains of a lot of GI issues in the form of abdominal pain, cram ping, and diarrhea. Symptoms are exacerbated by fatty, greasy, spicy foods. As such, she has been unable to keep much food down and has not been able to take all of her medications well. Past Med Surg Social Fam HX - Past Medical History Attestation: Yes The following information was validated with the patient. Source: patient, old records reviewed, obtained from family Medical history: asthma, seizures Additional medical history: Pt states she has been diagnosed with Chrons desease, hypoglycemia Psychiatric history: anxiety, bipolar, depression, PTSD - Past Surgical History Surgical History: no surgical history Additional surgical history: tooth removal in 2013 - Social History Smoking Status: Current every day smoker Smokeless Tobacco Status: No Alcohol use: occasionally Drug use: marijuana Current living situation: Home, With Family Activity Level: Independent ambulation Recent Out of Country Travel Within the Last 8 Weeks: No - Family History Father Living Status: Still Living Hx Family Cardiac Disorders: Yes (HTN) Hx Family Respiratory Disorders: No Hx Family Cancer: No Hx Family GI Disorders: No Hx Family Genitourinary Disorders: No Hx Family Endocrine Disorder: Yes (High blood sugar) Hx Family Musculoskeletal Disorders: No Hx Family Neuromuscular Disorders: No Hx Family Neurologic Disorders: Yes Hx Family HEENT Disorders: No Hx Family Autoimmune Disorders: No Hx Family Reproductive Disorders: No Hx Family Psychosocial Disorders: No Hx Family Medical Disorders: No Mother Adopted: No Living Status: Still Living Hx Family Cardiac Disorders: Yes (HTN) Hx Family Respiratory Disorders: No Hx Family Cancer: No Hx Family GI Disorders: No Hx Family Genitourinary Disorders: No Hx Family Endocrine Disorder: No Hx Family Musculoskeletal Disorders: No Hx Family Neuromuscular Disorders: No Hx Family Neurologic Disorders: No Hx Family HEENT Disorders: No Hx Family Autoimmune Disorders: No Hx Family Reproductive Disorders: No Hx Family Psychosocial Disorders: No Hx Family Medical Disorders: No Internal Medicine - H&P: Meds No Known Home Drugs 12/24/18 [History] Allergy/AdvReac Type Severity Reaction Status Date / Time prednisone AdvReac See Verified 09/22/18 14:58 Comments - Constitutional Constitutional: no chills, no fever(s), no night sweats - EENT Eyes: no blurry vision, no change in vision Ears: no ear pain, no tinnitus Nose, mouth and throat: no nasal congestion, no sinus pressure, no sore throat - Cardiovascular Cardiovascular ROS IM: no chest pain, no dyspnea, no dyspnea on exertion - Respiratory Respiratory: no cough, no wheezing, no chest congestion, no excessive phlegm production, no change in phlegm color - Gastrointestinal Gastrointestinal: abdominal pain, diarrhea, heartburn, nausea, vomiting, no hematemesis, no hematochezia, no melena - Genitourinary Genitourinary: no dysuria, no flank pain, no hematuria - Musculoskeletal Musculoskeletal ROS IM: no arthralgias, no back pain - Integumentary Integumentary IM: no rash, no jaundice - Neurological Neurological ROS: convulsions, no disequilibrium, no dizziness, no focal we akness, no frequent falls, no headache(s), no numbness - Psychiatric Psychiatric: no anxiety, no depression - Endocrine Endocrine IM: no cold intolerance, no heat intolerance, no polydipsia, no polyphagia, no polyuria - Allergic/Immunologic Allergic/Immunologic: GI upset with certain foods - Constitutional Vitals: Temp Pulse Resp BP Pulse Ox 98.2 F 77 18 120/74 98 12/24/18 22:36 12/24/18 22:36 12/24/18 22:36 12/24/18 22:36 12/24/18 22:36 General appearance: Present: cooperative, A&O X 3, pleasant, no acute distress, answers questions appropriately Exam: see below - Head Head exam: Present: atraumatic, normal inspection - Eye Eye exam: Present: EOMI, PERRL. Absent: scleral icterus Pupils: Present: normal accommodation - ENT ENT exam: Present: mucous membranes dry, normal exam, normal oropharynx - Neck Neck exam general surgery: Present: full ROM, supple, trachea midline. Absent: tenderness, nuchal rigidity, thyromegaly - Respiratory Respiratory exam: Present: CTAB. Absent: chest wall tenderness, rales, rhonchi, wheezes - Cardiovascular Cardiovascular exam: Present: RRR, +S1, +S2. Absent: diastolic murmur, systolic murmur - GI/Abdominal GI/Abdominal exam: Present: normal bowel sounds, soft, tenderness. Absent: guarding (RUQ -- mild), hepatomegaly, mass, rebound, splenomegaly - Extremities Exam Extremities exam: Present: normal capillary refill, warm, radial pulses palpable and symmetrical. Absent: calf tenderness, pedal edema, tenderness - Back Exam Back exam: Present: normal inspection. Absent: CVA tenderness (L), CVA tenderness (R) - Neurological Exam Neurological exam: Present: alert, CN II-XII intact, oriented X3, reflexes normal, no focal deficits, strengths equal and symetr throughout - Psychiatric Psychiatric exam: Present: anxious. Absent: depressed, manic - Skin Skin exam: Present: dry, intact, warm Internal Med - H&P Results - Labs CBC & Chem 7: 12/24/18 19:28 12/24/18 19:28 Labs: Short CBC 12/24/18 Range/Units 19:28 WBC 8.6 (4.3-11.1) K/mcL Hgb 14.2 (11.5-15.4) g/dL Hct 41.1 (35.3-44.9) % Plt Count 197 (140-400) K/mcL Neutrophils # 6.6 (1.6-8.9) K/mcL BMP 12/24/18 19:28 Sodium 139 Potassium 3.8 Chloride 106 Carbon Dioxide 20 L BUN 10 Creatinine 0.58 L Glucose 84 Calcium 9.3 Liver Function 12/24/18 Range/Units 19:28 Total Bilirubin 0.7 (0.3-1.0) mg/dL AST 16 (13-39) Units/L ALT 20 (7-52) Units/L Alkaline Phosphatase 73 (34-104) Units/L Albumin 4.6 (3.5-5.7) g/dL Urine 12/24/18 Range/Units 20:16 Urine Color Yellow (Yellow) Urine Clarity Clear (Clear) Urine pH 6.0 (5.0-8.0) pH Units Ur Specific [place] 1.022 (1.010-1.025) Urine Protein Negative (Neg-Trace) mg/dL Urine Glucose (UA) Normal (Normal) mg/dL - Impressions ITS Impressions Head CT 12/24/18 18:45 IMPRESSION: No acute intracranial abnormality. D/ / Dara Kent MD / Dara Kent MD Interpreting Provider: Dara Kent MD Cervical Spine CT 12/24/18 20:15 IMPRESSION: No acute findings in the cervical spine. D/ / Bowen Brito MD / Bowen Brito MD Interpreting Provider: Bowen Brito MD - Diagnostic Studies CT scan - head Status: image reviewed by me (negative) - Assessment and Plan (1) Breakthrough seizure Current Visit: Yes Status: Acute Assessment and plan: 1. Non-compliance seems to be the major contributor. Patient and counseled at length on the need to comply with medication and follow up. 2. Resume Keppra as originally prescribed. 3. Seizure precautions. 4. Ativan ordered PRN for seizure activity. (2) RUQ abdominal pain Current Visit: Yes Status: Acute Assessment and plan: 1. Will order GB ultrasound. 2. May need HIDA scan if negative. 3. Outpatient GI work-up may be warranted as well. (3) History of manic depressive disorder Current Visit: Yes Status: Chronic Assessment and plan: 1. Consult psychiatry for medication guidance and follow up recommendations. (4) DVT prophylaxis Current Visit: Yes Status: Acute Assessment and plan: 1. EPCD's.
[2018-12-25 06:29] LABS: Basophils % 0.3 %; Eosinophils # 0.1 K/mcL (0.0-0.6); Eosinophils % 0.9 %; Hematocrit 41.2 % (35.3-44.9); Hemoglobin 13.8 g/dL (11.5-15.4); Immature Granulocytes % 0.3 % (0-4); Lymphocytes # 2.4 K/mcL (0.6-4.6); Lymphocytes % 31.7 %; Mean Corpuscular HGB Conc 33.5 g/dL (31.6-35.5); Mean Corpuscular Hemoglobin 29.9 pg (28.0-33.3); Mean Corpuscular Volume 89.4 fL (83.0-100.0); Mean Platelet Volume 10.7 fL (9.4-12.4); Monocytes # 0.6 K/mcL (0.0-1.3); Neutrophils # 4.5 K/mcL (1.6-8.9); Platelet Count 199 K/mcL (140-400); Red Blood Count 4.61 M/mcL (3.82-4.97); Red Cell Distribution Width 11.8 % (11.5-14.5); Segmented Neutrophils % 58.8 %; White Blood Count 7.7 K/mcL (4.3-11.1)
[2018-12-25 06:48] LABS: Alanine Aminotransferase 18 Units/L (7-52); Albumin 4.3 g/dL (3.5-5.7); Alkaline Phosphatase 67 Units/L (34-104); Aspartate Amino Transferase 14 Units/L (13-39); BUN/Creatinine Ratio 19 (6-26); Bilirubin,Total 0.7 mg/dL (0.3-1.0); Blood Urea Nitrogen 10 mg/dL (6-20); Calcium 9.2 mg/dL (8.6-10.3); Carbon Dioxide 22 mEq/L (23-29); Chloride 107 mEq/L (98-107); Globulin 2.1 g/dL (2.4-3.5); Glucose 81 mg/dL (70-105); Osmolality,Calculated 284 (280-300); Potassium 3.8 mEq/L (3.5-5.1); Sodium 138 mEq/L (136-145); Total Protein 6.4 g/dL (6.4-8.9); eGFR For African Americans > 60 (> 60); eGFR For Non-African Americans > 60 (> 60)
--- NOTE | 2018-12-25 08:17 | Internal Med Progress Note ---
Hospitalist Progress Note - Encounter Date of Encounter: 12/25/18 Time of Encounter: 08:15 - Subjective Interval History: PT seen and examined in the room. She has no further seizure activity overnight. 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 She also mentioned that she will get generic form of AED from [facility] after discharge. - Exam Vitals: Temp Pulse Resp BP Pulse Ox 98.0 F 74 16 100/63 97 12/25/18 07:13 12/25/18 07:13 12/25/18 07:13 12/25/18 07:13 12/25/18 07:13 Exam: PHYSICAL EXAMINATION: GENERAL APPEARANCE: The patient is alert, oriented and in no acute distress. HEENT: Head is normocephalic. The sinuses are nontender. Pupils are equal and reactive. The nares are patent. Oropharynx clear without lesions. NECK: Supple without lymphadenopathy. HEART: Regular rate and rhythm. LUNGS: No crackles or wheezes are heard. ABDOMEN: Soft, nontender, nondistended with good bowel sounds heard. Inguinal area is normal. EXTREMITIES: Without cyanosis, clubbing or edema. NEUROLOGICAL: Gross nonfocal. SKIN: Warm and dry without any rash. - Assessment and Plan (1) Breakthrough seizure Current Visit: Yes Status: Acute Assessment and Plan: Recurrent seizure due to medication non-complaint. Pt lost medical insurance recently. We will prescribed generic form of Keppra upon discharge. Continue home dose of Keppra. monitoring seizure activity. Anticipate dc tomorrow if seizure was controlled. (2) History of manic depressive disorder Current Visit: Yes Status: Chronic Assessment and Plan: psych consult. continue home meds. (3) RUQ abdominal pain Current Visit: Yes Status: Acute Assessment and Plan: 1. Pending GB ultrasound. 2. May need HIDA scan if negative. 3. Outpatient GI work-up may be warranted as well. (4) DVT prophylaxis Current Visit: Yes Status: Acute Assessment and Plan: 1. EPCD's. - Time Spent with Patient Total time spent is greater than 50% in coordination of care (as documented) at patient's floor/unit and/or counseling patient: Greater than 35 minutes Plan of Care Discussed with: patient Internal Medicine: Result - Labs CBC & Chem 7: 12/25/18 05:51 12/25/18 05:51 Labs: Short CBC 12/24/18 12/25/18 Range/Units 19:28 05:51 WBC 8.6 7.7 (4.3-11.1) K/mcL Hgb 14.2 13.8 (11.5-15.4) g/dL Hct 41.1 41.2 (35.3-44.9) % Plt Count 197 199 (140-400) K/mcL Neutrophils # 6.6 4.5 (1.6-8.9) K/mcL BMP 12/24/18 12/25/18 19:28 05:51 Sodium 139 138 Potassium 3.8 3.8 Chloride 106 107 Carbon Dioxide 20 L 22 L BUN 10 10 Creatinine 0.58 L 0.54 L Glucose 84 81 Calcium 9.3 9.2 Liver Function 12/24/18 12/25/18 Range/Units 19:28 05:51 Total Bilirubin 0.7 0.7 (0.3-1.0) mg/dL AST 16 14 (13-39) Units/L ALT 20 18 (7-52) Units/L Alkaline Phosphatase 73 67 (34-104) Units/L Albumin 4.6 4.3 (3.5-5.7) g/dL Urine 12/24/18 Range/Units 20:16 Urine Color Yellow (Yellow) Urine Clarity Clear (Clear) Urine pH 6.0 (5.0-8.0) pH Units Ur Specific [place] 1.022 (1.010-1.025) Urine Protein Negative (Neg-Trace) mg/dL Urine Glucose (UA) Normal (Normal) mg/dL - Impressions Impressions Head CT 12/24/18 18:45 IMPRESSION: No acute intracranial abnormality. D/ / Dara Kent MD / Dara Kent MD Interpreting Provider: Dara Kent MD Cervical Spine CT 12/24/18 20:15 IMPRESSION: No acute findings in the cervical spine. D/ / Bowen Brito MD / Bowen Brito MD Interpreting Provider: Bowen Brito MD Consult Discharge Plan - Plan Referrals: NONE,PCP [Primary Care Provider] -
[2018-12-25] MEDS: levETIRAcetam 250 MG TABLET PO SCH ×2 (08:58→20:29)
--- NOTE | 2018-12-25 09:26 | Neurology - Consult Note ---
<Duane William Martha - Last Filed: 12/25/18 11:26> Date of Encounter: 12/25/18 Time of Encounter: 09:13 Assessment and Plan (1) Seizure Current Visit: Yes Status: Acute Patient has diagnosed seizure disorder for which she is prescribed Keppra She has not been compliant with this medication due to financial/compliance reasons She presented to the hospital for seizure activity Neurology evaluated and recommended resuming Keppra Patient left AMA, did not resume Keppra, returned due to resumed seizure activity Patient has no new deficits or changes in history or on exam Previous MRI imaging without acute abnormality, pseudo-seizure remains in the differential Recommend continuing Keppra 500mg BID PO Recommend follow up with established epileptic neurologist at [facility] (2) History of bipolar disorder Current Visit: No Status: Chronic History of Bipolar disorder, is also not taking prescribed Zoloft/Xanax Recommend Psychiatry evaluation and resuming prescribed medications History of Present Illness Chief complaint: seizures HPI: Ms. Ludwig is a 23 year old female with a past medical history of seizures and bipolar disorder and PTSD. She is prescribed Keppra, Zoloft, and Xanax for these conditions however she has not taken these medications in many months due to insurance lapse. She was very recently admitted 2 days ago for seizure activity and was evaluated by the neurology group and hospitalist group, prior to leaving AGAINST MEDICAL ADVICE yesterday. During that admission neurology recommendation was to continue prescribed Keppra at 500 mg twice a day, as there was no new evidence of acute neurological abnormality, and was cleared for discharge with follow-up with her current epileptic neurologist at [facility]. Psychiatric evaluation was also recommended however the patient left AMA prior to being evaluated by psychiatry or picking up prescriptions for Keppra. The patient returned to the hospital this morning complaining of renewed seizure activity at home. She states she was at home in the shower and had a seizure, this was not witnessed, she crawled out of the shower and called 911. She was evaluated in the emergency department and admitted to the floor. On my evalua tion this morning the patient denies any seizure activity since being admitted. She does complain of a mild left-sided headache that is continuous and dull in nature and has been present for 3 days. She also complains of right sided numbness and tingling that has also been present for 3 days. She understands the recommendation per neurology is to continue her prescribed antiepileptic medication and to also consult with psychiatry to resume her psychiatric medications as many of her seizures appear to be related to stress. She states she is ready to stay in the hospital this admission and receive her recommended care. She denies any other new onset symptoms such as weakness, lightheadedn ess, change in vision, shortness of breath or chest pain, nausea or abdominal pain, abnormal bleeding or bruising, rash or skin changes, fever or chills. Past Med Surg Social Fam HX - Past Medical History Medical history: asthma, seizures Additional medical history: Pt states she has been diagnosed with Chrons desease, hypoglycemia Psychiatric history: anxiety, bipolar, depression, PTSD - Past Surgical History Surgical History: no surgical history Additional surgical history: tooth removal in 2013 - Social History Smoking Status: Current every day smoker Smokeless Tobacco Status: No Alcohol use: occasionally Drug use: marijuana - Family History Father Living Status: Still Living Hx Family Cardiac Disorders: Yes (HTN) Hx Family Respiratory Disorders: No Hx Family Cancer: No Hx Family GI Disorders: No Hx Family Genitourinary Disorders: No Hx Family Endocrine Disorder: Yes (High blood sugar) Hx Family Musculoskeletal Disorders: No Hx Family Neuromuscular Disorders: No Hx Family Neurologic Disorders: Yes Hx Family HEENT Disorders: No Hx Family Autoimmune Disorders: No Hx Family Reproductive Disorders: No Hx Family Psychosocial Disorders: No Hx Family Medical Disorders: No Mother Adopted: No Living Status: Still Living Hx Family Cardiac Disorders: Yes (HTN) Hx Family Respiratory Disorders: No Hx Family Cancer: No Hx Family GI Disorders: No Hx Family Genitourinary Disorders: No Hx Family Endocrine Disorder: No Hx Family Musculoskeletal Disorders: No Hx Family Neuromuscular Disorders: No Hx Family Neurologic Disorders: No Hx Family HEENT Disorders: No Hx Family Autoimmune Disorders: No Hx Family Reproductive Disorders: No Hx Family Psychosocial Disorders: No Hx Family Medical Disorders: No Medications and Allergies No Known Home Drugs 12/24/18 [History] Allergy/AdvReac Type Severity Reaction Status Date / Time prednisone AdvReac See Verified 09/22/18 14:58 Comments All Systems: The remainder of the systems were reviewed and are negative - Constitutional Constitutional ROS IM: as per HPI Physical Examination - Vital Signs Vital Signs: Initial Vital Signs Temp Pulse Resp BP Pulse Ox 98.6 F 78 28 121/80 94 12/24/18 18:41 12/24/18 18:41 12/24/18 18:41 12/24/18 18:41 12/24/18 18:41 - Constitutional General appearance: comfortable - Neurologic Sensorimotor examination: intact Detailed motor examination: grossly full strength in all extremities Motor examination - right side: 5: deltoids, triceps, animation producer, hip flexors, tibialis Anterior, plantarflexion Motor examination - left side: 55: deltoids, triceps, hip flexors, animation producer, tibialis Anterior, plantarflexion Detailed sensory examination: light touch Mental Status Examination: awake, alert, oriented to person, oriented to place, oriented to time, follows commands appropriately, answers questions appropriately, no aphasia, lucid Cranial nerve examination: PERRL, EOMI, sensory to face intact, no facial asymmetry is present, no dysarthria, flexes SCM and trapezius muscles symmetrically with full power, tongue protrudes midline, no atrophy or facial fasiculations present Results - Laboratory Findings CBC and BMP: 12/25/18 05:51 12/25/18 05:51 Abnormal lab findings: Abnormal lab results Carbon Dioxide 22 mEq/L (23-29) L 12/25/18 05:51 0.54 mg/dL (0.60-1.20) L 12/25/18 05:51 2.1 g/dL (2.4-3.5) L 12/25/18 05:51 40 mg/dL (Negative) H 12/24/18 20:16 U Marijuana (THC) Screen Positive ng/mL (Cutoff = 50) H 12/24/18 20:17 Consult Discharge Plan - Plan Referrals: NONE,PCP [Primary Care Provider] - <Ame Gonsalez I - Last Filed: 12/25/18 15:33> Date of Encounter: 12/25/18 Assessment and Plan (1) Seizure Current Visit: Yes Status: Acute Pt was seen and examined, my medical decision was reviewed with the Resident Physician, I agree with the documented findings, disposition and treatment plan, as described except to the extent set forth below Strongly recommend psychiatric evaluation as patient having multiple psychosomatic symptoms MRI of the brain did not reveal any abnormality no need to do repeating imaging studies at this time Continue on the current dose of Page Gonsalez MD History of Present Illness HPI: Ms. Vani is a 23 year old female All Systems: The remainder of the systems were reviewed and are negative Physical Examination - Vital Signs Vital Signs: Initial Vital Signs Temp Pulse Resp BP Pulse Ox 98.6 F 78 28 121/80 94 12/24/18 18:41 12/24/18 18:41 12/24/18 18:41 12/24/18 18:41 12/24/18 18:41 - Exam Exam: GENERAL: Comfortable in no acute distress HEENT: Normal LUNGS: CTA HEART: RRR, S1 S2 Audible, no murmur EXTREMITIES: No Pedal edema. DETAILED NEUROLOGICAL EXAMINATION: MENTAL STATUS: Oriented to person, place, date and situation. Memory: knows the President, Aware of recent events Recent Memory Intact, Attention span is normal Cranial Nerve Examination: CN - II: Visual Acuity, Field of Vision Normal, Fundus examination: No disk edema, Pupils- size shape reaction to light and accommodation: All normal. CN III, IV, : External ocular movements were intact, Pupils were reactive, Nodrooping of the eyelids CN V: Sensation over the face to light touch and pinprick all normal. Corneal reflexes not tested, jaw jerk normal. CN VII: No facial asymmetry, no flattening of nasolabial folds, no difficulty in closing the eyes, no loss of forehead wrinkles, no difficulty in eye-closure, frowning raising eyebrows. CNVIII: No significant hearing loss CN IX, X: Uvula centralized not deviated, Gag reflex: Not tested CN X1: Sternocleidomastoid, trapezius, normal or evidence of any weakness. CN X11: No Dysarthria, no wasting or fibrilation f tongue muscles, no deviation, tongue muscle strength normal. Motor examination: No hypertrophy, tone was normal, power grade 0-5 Upper limbs Proximal- No difficulty in lifting the arms above the head. Distal- No weakness in distal muscles On formal testing 5/5 all over Lower limbs On formal testing 5/5 all over Coordination: [id number] normal. Target pursuit normal finger tapping normal, Rapid alternating moment of wrist normal Sensory system: Superficial sensations- Touch normal. Pain- Pinprick, Temperature all normal, Deep sensation normal, Joint position sense normal. Cortical sensation, Tactile discrimination, localization and extinction all normal. Deep tendon reflexes. Symmetrical bilateral, No evidence of Babinski. No sign of meningeal irritation Gait Examination: Deferred Results - Laboratory Findings CBC and BMP: 12/25/18 05:51 12/25/18 05:51 Abnormal lab findings: Abnormal lab results Carbon Dioxide 22 mEq/L (23-29) L 12/25/18 05:51 0.54 mg/dL (0.60-1.20) L 12/25/18 05:51 2.1 g/dL (2.4-3.5) L 12/25/18 05:51 40 mg/dL (Negative) H 12/24/18 20:16 U Marijuana (THC) Screen Positive ng/mL (Cutoff = 50) H 12/24/18 20:17
--- NOTE | 2018-12-25 14:15 | Consult Note ---
Date of Encounter: 12/25/18 Time of Encounter: 14:03 Assessment & Recommendation (1) History of bipolar disorder Current visit: No Status: Chronic Assessment & Recommendation: Client reports a history of Bipolar Disorder but her symptoms seem more consistent with an anxiety disorder. Given that she responded best to Zoloft and Xanax in the past, this suggests an anxiety disorder as well. Client denies SI/HI/AH/VH. Does not appear to meet inpatient mental health criteria at this time. However, recommend a mental health social worker consult to re-link her with outpatient mental health services. Given her positive clinical response to Zoloft in the past recommend restarting this medication at 50mg qam. Would not recommend Xanax but can consider a longer acting benzodiazepine like Klonopin provided she is discharged with enough to get her through her initial outpatient appointment. Would recommend a low dose like 0.5mg once or twice a day prn to start. Call if any questions. History of Present Illness Requesting Physician: Delano Vizcarra MD Reason for consult: Medication Recommendation History of present illness: Ms. Ludwig is a 23 year old female who was admitted for seizure activity. Previous diagnosis of Bipolar Disorder and off meds for two years. Clients seizures likely nonepileptiform in nature and increase in anxiety from being off mental health meds seems to have intensified pseudoseizure activity. Client states she previously took Zoloft and Xanax with positive results. present at bedside and agrees his was a "different person" when stable on medications. Client has a history of a suicide attempt and hospitalization at [facility] as a juvenile but no SI, intent, or plan as an adult. Client denies any AOD issues other than occasional THC. Strong family history of mental illness. Client claims everyone on her mother's side of the family is diagnosed with Bipolar Disorder. CC: Delano Vizcarra MD Past Med Surg Social Fam HX - Past Medical History Medical history: asthma, seizures - Past Psychiatric History Psychiatric history: Reports: anxiety, bipolar, prior suicide attempt, previous psychiatric hospitalization Family psychiatric history: Yes Family Psychiatric History Details: Bipolar Disorder on maternal side of family Family History of Suicide: Unknown - Past Surgical History Surgical History: no surgical history - Social History Smoking Status: Current every day smoker Smokeless Tobacco Status: No Alcohol use: occasionally Drug use: marijuana - Family History Father Living Status: Still Living Hx Family Cardiac Disorders: Yes (HTN) Hx Family Respiratory Disorders: No Hx Family Cancer: No Hx Family GI Disorders: No Hx Family Genitourinary Disorders: No Hx Family Endocrine Disorder: Yes (High blood sugar) Hx Family Musculoskeletal Disorders: No Hx Family Neuromuscular Disorders: No Hx Family Neurologic Disorders: Yes Hx Family HEENT Disorders: No Hx Family Autoimmune Disorders: No Hx Family Reproductive Disorders: No Hx Family Psychosocial Disorders: No Hx Family Medical Disorders: No Mother Adopted: No Living Status: Still Living Hx Family Cardiac Disorders: Yes (HTN) Hx Family Respiratory Disorders: No Hx Family Cancer: No Hx Family GI Disorders: No Hx Family Genitourinary Disorders: No Hx Family Endocrine Disorder: No Hx Family Musculoskeletal Disorders: No Hx Family Neuromuscular Disorders: No Hx Family Neurologic Disorders: No Hx Family HEENT Disorders: No Hx Family Autoimmune Disorders: No Hx Family Reproductive Disorders: No Hx Family Psychosocial Disorders: No Hx Family Medical Disorders: No Medications & Allergies No Known Home Drugs 12/24/18 [History] Allergy/AdvReac Type Severity Reaction Status Date / Time prednisone AdvReac See Verified 09/22/18 14:58 Comments Review of Systems Constitutional: Denies: fever, chills, weakness, weight change Eyes: Denies: eye pain, vision change Ears, Nose, Throat: Denies: ear pain, throat pain, dental pain, hearing loss, congestion Cardiovascular: Denies: chest pain, palpitations, dyspnea on exertion Respiratory: Denies: cough, dyspnea, wheezes Gastrointestinal: Denies: abdominal pain, nausea, vomiting, diarrhea, constipation Genitourinary female: Denies: urgency, dysuria, frequency, abnormal menses, dyspareunia Musculoskeletal: Denies: joint swelling, joint pain Integumentary: Denies: rash, lesions, pruritus Neurological: Denies: headache, weakness, numbness, memory loss Endocrine: Denies: fatigue, heat or cold intolerance Hematologic/Lymphatic: Denies: easy bruising, lymphadenopathy Allergic/Immunologic: Denies: urticaria, itchy eyes Psychiatry Exam - Constitutional Vitals: Temp Pulse Resp BP Pulse Ox 97.7 F 64 16 113/76 97 12/25/18 10:43 12/25/18 10:43 12/25/18 10:43 12/25/18 10:43 12/25/18 10:43 General appearance: age & developmentally appropriate, well-groomed, well-nourished - Musculoskeletal Gait: normal Station: relaxed Strength & Tone: normal for patient - Psychiatric Patient Orientation: Yes Person, Yes Time, Yes Place Level of alertness: Alert Behavior: calm, cooperative Psychomotor activity: Normal Eye Contact: Maintains Eye Contact Mood Description: Anxious Affect description: congruent with mood, full range Speech Volume: Normal Speech pattern: normal rate, normal rhythm, normal tone, fluent, spontaneous Language & Vocabulary: consistent with education Thought Process: Linear, Goal Oriented Thought Content: No Suicidal ideation, No Homicidal ideation, No Overt delusions Perceptual Disturbances: No Auditory hallucinations, No Visual hallucinations Attention Span Ability: Capable of Focused Attention Memory Description: Grossly Intact Patient Reliability: Reliable Historian Fund of knowledge: Yes abstraction ability, Yes aware of current events Intelligence Estimate: Average Judgment: Fair Insight: Partial Results - Drug Levels and Toxicology Drug Levels and Toxicology: Drug Levels and Toxicity 12/24/18 20:17 Urine Opiates Screen Negative Ur Barbiturates Screen Negative Ur Phencyclidine Scrn Negative Ur Amphetamines Screen Negative U Benzodiazepines Scrn Negative Urine Cocaine Screen Negative U Marijuana (THC) Screen Positive H - Labs Labs: Laboratory Last Values WBC 7.7 K/mcL (4.3-11.1) 12/25/18 05:51 RBC 4.61 M/mcL (3.82-4.97) 12/25/18 05:51 Hgb 13.8 g/dL (11.5-15.4) 12/25/18 05:51 Hct 41.2 % (35.3-44.9) 12/25/18 05:51 MCV 89.4 fL (83.0-100.0) 12/25/18 05:51 MCH 29.9 pg (28.0-33.3) 12/25/18 05:51 MCHC 33.5 g/dL (31.6-35.5) 12/25/18 05:51 RDW 11.8 % (11.5-14.5) 12/25/18 05:51 Plt Count 199 K/mcL (140-400) 12/25/18 05:51 MPV 10.7 fL (9.4-12.4) 12/25/18 05:51 Immature Gran % 0.3 % (0-4) 12/25/18 05:51 Seg Neutrophils % 58.8 % 12/25/18 05:51 31.7 % 12/25/18 05:51 8.0 % 12/25/18 05:51 0.9 % 12/25/18 05:51 0.3 % 12/25/18 05:51 4.5 K/mcL (1.6-8.9) 12/25/18 05:51 2.4 K/mcL (0.6-4.6) 12/25/18 05:51 0.6 K/mcL (0.0-1.3) 12/25/18 05:51 0.1 K/mcL (0.0-0.6) 12/25/18 05:51 0.0 K/mcL (0.0-0.2) 12/25/18 05:51 Sodium 138 mEq/L (136-145) 12/25/18 05:51 Potassium 3.8 mEq/L (3.5-5.1) 12/25/18 05:51 Chloride 107 mEq/L (98-107) 12/25/18 05:51 Carbon Dioxide 22 mEq/L (23-29) L 12/25/18 05:51 BUN 10 mg/dL (6-20) 12/25/18 05:51 0.54 mg/dL (0.60-1.20) L 12/25/18 05:51 Est GFR ( Amer) > 60 (> 60) 12/25/18 05:51 Est GFR (Non-Af Amer) > 60 (> 60) 12/25/18 05:51 19 (6-26) 12/25/18 05:51 Glucose 81 mg/dL (70-105) 12/25/18 05:51 284 (280-300) 12/25/18 05:51 Calcium 9.2 mg/dL (8.6-10.3) 12/25/18 05:51 Phosphorus 2.9 mg/dL (2.7-4.5) 12/24/18 19:28 Magnesium 2.0 mg/dL (1.6-2.6) 12/25/18 05:51 0.7 mg/dL (0.3-1.0) 12/25/18 05:51 AST 14 Units/L (13-39) 12/25/18 05:51 ALT 18 Units/L (7-52) 12/25/18 05:51 67 Units/L (34-104) 12/25/18 05:51 6.4 g/dL (6.4-8.9) 12/25/18 05:51 4.3 g/dL (3.5-5.7) 12/25/18 05:51 2.1 g/dL (2.4-3.5) L 12/25/18 05:51 2.0 (1.1-2.2) 12/25/18 05:51 Serum , Qual Negative (Negative) 12/24/18 19:28 Yellow (Yellow) 12/24/18 20:16 Clear (Clear) 12/24/18 20:16 6.0 pH Units (5.0-8.0) 12/24/18 20:16 Ur Specific Viking 1.022 (1.010-1.025) 12/24/18 20:16 Negative mg/dL (Neg-Trace) 12/24/18 20:16 Normal mg/dL (Normal) 12/24/18 20:16 40 mg/dL (Negative) H 12/24/18 20:16 Negative (Negative) 12/24/18 20:16 Negative (Negative) 12/24/18 20:16 Negative (Negative) 12/24/18 20:16 Normal mg/dL (Normal) 12/24/18 20:16 Ur Leukocyte Esterase Negative (Negative) 12/24/18 20:16 Negative ng/mL (Yokwjm=326) 12/24/18 20:17 Ur Buprenorphine Scrn Negative ng/mL (Cutoff=5) 12/24/18 20:17 Ur Barbiturates Screen Negative ng/mL (Pikrdq=083) 12/24/18 20:17 Ur Phencyclidine Scrn Negative ng/mL (Cutoff=25) 12/24/18 20:17 Ur Amphetamines Screen Negative ng/mL (Ovtsys=1053) 12/24/18 20:17 U Benzodiazepines Scrn Negative ng/mL (Yvwokr=385) 12/24/18 20:17 Negative ng/mL (Cutoff= 300) 12/24/18 20:17 U Marijuana (THC) Screen Positive ng/mL (Cutoff = 50) H 12/24/18 20:17 Ur Drug Screen Interp See Below 12/24/18 20:17 - Impressions Impressions Head CT 12/24/18 18:45 IMPRESSION: No acute intracranial abnormality. D/ / Dara Kent MD / Dara Kent MD Interpreting Provider: Dara Kent MD Cervical Spine CT 12/24/18 20:15 IMPRESSION: No acute findings in the cervical spine. D/ / Bowen Brito MD / Bowen Brito MD Interpreting Provider: Bowen Brito MD Consult Discharge Plan - Plan Referrals: NONE,PCP [Primary Care Provider] -
[2018-12-25] MEDS ORDERED: clonazePAM 0.5 MG TABLET PO PRN (15:06)
[2018-12-25] MEDS ORDERED: clonazePAM 0.5 MG TABLET PO ONE (22:46)
[2018-12-26] MEDS ORDERED: Melatonin 3 MG TABLET PO ONE (03:16)
[2018-12-26 07:17] VITALS: BP 104/75
[2018-12-26] MEDS: levETIRAcetam 250 MG TABLET PO SCH (07:53)
--- NOTE | 2018-12-26 09:28 | Discharge Summary ---
- NOTES TO OUTPATIENT PROVIDER Notes to Outpatient Provider: f/u with PCP within a week. Orders not resulted at time of discharge: Pending orders 12/24/18 18:45 ECG 12 lead ECG [ECG] Stat Date of Encounter: 12/26/18 Time of Encounter: 09:26 - Discharge Diagnosis (1) Breakthrough seizure Priority: Primary Status: Acute (2) History of manic depressive disorder Priority: Secondary Status: Chronic (3) RUQ abdominal pain Priority: Primary Status: Resolved (4) DVT prophylaxis Priority: Primary Status: Acute Hospital course: Ms. Ludwig is a 23 year old female who presents to the ER with recurrent seizure. Patient left AGAINST MEDICAL ADVICE early this morning after she was admitted the night before with recurrent seizures. Patient has history of seizure disorder but has been noncompliant with her medications due to lack of insurance coverage. She was being treated and evaluated by neurology and hospitalist group this last admission when she left AMA. She now returns with recurrent seizure while she was showering this evening. She was reportedly home alone when she was in the shower and suffered a seizure. She does not recall how long she was unconscious/postictal. When she came around, she crawled out of the shower to call 911. She underwent workup in the ER and was readmitted to hospitalist service. Patient was restarted home medication with Keppra at dose of 500 twice a day. Patient also complains anxiety/depression, psychiatry was consulted, recommended started patient on Zoloft as well as Klonopin as needed. Patient has been closely monitoring for more than 24 hours, she did not develop seizure activity, her mood was stable, she has no suicidal ideation. Patient will be discharged home today, was instructed to take medications as prescribed, and a continue follow-up with PCP as scheduled. Discharge discussed with: patient Time spent discussing smoking cessation with patient: more than 10 minutes - Time Spent with Patient Total time spent providing and/or coordinating discharge services: Time spent: Greater than 30 minutes - Discharge Medications Prescriptions: New levETIRAcetam [Keppra] 500 mg PO BID #60 tablet clonazePAM [Klonopin] 0.5 mg PO BID PRN 7 Days #14 tablet PRN Reason: Anxiety Sertraline [Zoloft] 50 mg PO DAILY #30 tablet Home Medications: Sertraline [Zoloft] 50 mg PO DAILY #30 tablet 12/26/18 [Rx] clonazePAM [Klonopin] 0.5 mg PO BID PRN 7 Days #14 tablet 12/26/18 [Rx] levETIRAcetam [Keppra] 500 mg PO BID #60 tablet 12/26/18 [Rx] Allergies/Adverse Reactions: Allergy/AdvReac Type Severity Reaction Status Date / Time prednisone AdvReac See Verified 09/22/18 14:58 Comments Date of admission: 12/24/18 21:56 Primary care physician: PCP NONE Consults: 12/24/18 23:42 Consult to Neurology [CONS] Routine Consulting Provider: Neu[facility] Reason for Consult: seizures; recurrent Call Completed: No Consult to Psychiatry [CONS] Routine Consulting Provider: [facility] Reason consult: Medication recommendation Other reason and/or additional details: patient with bipolar/depression; off meds for 8 months Call Completed: Yes Anticipated date of discharge: 12/26/18 - Constitutional Vitals: Temp Pulse Resp BP Pulse Ox 98.1 F 62 16 104/75 93 12/26/18 07:17 12/26/18 07:17 12/26/18 07:17 12/26/18 07:17 12/26/18 07:58 General appearance: Present: cooperative, A&O X 3, pleasant, no acute distress, answers questions appropriately Exam: PHYSICAL EXAMINATION: GENERAL APPEARANCE: The patient is alert, oriented and in no acute distress. HEENT: Head is normocephalic. The sinuses are nontender. Pupils are equal and reactive. The nares are patent. Oropharynx clear without lesions. NECK: Supple without lymphadenopathy. HEART: Regular rate and rhythm. LUNGS: No crackles or wheezes are heard. ABDOMEN: Soft, nontender, nondistended with good bowel sounds heard. Inguinal area is normal. EXTREMITIES: Without cyanosis, clubbing or edema. NEUROLOGICAL: Gross nonfocal. SKIN: Warm and dry without any rash. - Patient Status Disposition: Home, Self-Care Condition: Fair Functional capacity at discharge: independent ambulation Overall status at discharge: patient is back to baseline - Discharge Instructions Follow Up With: NONE,PCP [Primary Care Provider] - - Diet and Activity Activity: increase activity as tolerated Diet: advance to your usual diet
--- NOTE | 2018-12-26 11:44 | Neurology Progress Note ---
Date of Encounter: 12/26/18 Time of Encounter: 09:00 Assessment and Plan (1) Seizure Status: Acute No seizure activity during hospitalization Continue Keppra (2) History of bipolar disorder Status: Chronic Bipolar management per Psych recommendations Subjective Principal diagnosis: seizures Interval history: No seizure activity overnight or this morning. Discussed with patient that our recommendation is still to make sure she continues Keppra when she returns home. She stated she understood and agreed. Objective - Constitutional Vitals: Temp Pulse Resp BP Pulse Ox 98.1 F 62 16 104/75 93 12/26/18 07:17 12/26/18 07:17 12/26/18 07:17 12/26/18 07:17 12/26/18 07:58 General appearance: Present: A&O X 3 Exam: Patient resting comfortably in bed Alert and oriented x 3 Cranial nerves 3-7 intact, 9-12 intact, 2 and 8 not quantified Cerebellar finger to nose normal Motor and sensation normal Results - Laboratory Findings CBC and BMP: 12/25/18 05:51 12/25/18 05:51 Abnormal lab findings: Abnormal lab results Carbon Dioxide 22 mEq/L (23-29) L 12/25/18 05:51 0.54 mg/dL (0.60-1.20) L 12/25/18 05:51 2.1 g/dL (2.4-3.5) L 12/25/18 05:51 40 mg/dL (Negative) H 12/24/18 20:16 U Marijuana (THC) Screen Positive ng/mL (Cutoff = 50) H 12/24/18 20:17 Consult Discharge Plan - Plan Instructions: Epilepsy (DC) Referrals: Chaim Champion DO [Resident] - 12/29/18 2:00 pm Agustin Morales, PhD [Doctor of Philosophy] - 01/19/19 2:00 pm (Counselor follow up) Kerri Clark [Partnered Physician] - 01/01/19 9:20 am (Psychiatry follow up) Prescriptions: levETIRAcetam [Keppra] 500 mg PO BID #60 tablet clonazePAM [Klonopin] 0.5 mg PO BID PRN 7 Days #14 tablet PRN Reason: Anxiety Sertraline [Zoloft] 50 mg PO DAILY #30 tablet
--- NOTE | 2018-12-26 13:36 | Electrocardiograph Report ---
[facility] Test Date: 2018-12-24 Pat Name: Sydnee Ludwig Department: EXAM30 Room: [facility] Gender: F Preforms Laminator: : 1995 Requested By: Kanu Knox Order Number: [id number] Reading MD: Grzegorz Kimbrough Measurements Intervals [place] Rate: 77 P: -21 MA: 187 QRS: 66 QRSD: 70 T: 49 QT: 370 QTc: 419 Interpretive Statements Sinus rhythm Electronically Signed On 12-26-2018 13:34:36 EDT by Grzegorz Kimbrough
== END 2018-12-26 11:30 | disposition home or self-care (01) ==
LOC: EMEROOARM 18:30 → 3BNU 18:30 → UNDODISOB 12-26 11:11
PROVIDERS: ADMIT Pediatrics; ATTEND Pediatrics

== ENCOUNTER 2019-10-25 19:07 | Observation (INO) ==
[2019-10-25] MEDS ORDERED: Ringers Solution, Lactated 1,000 ML IVC SCH (20:30)
[2019-10-25] MEDS ORDERED: Ondansetron 4 MG/2 ML VIAL IVP ONE (21:21)
[2019-10-25] MEDS ORDERED: Ondansetron 4 MG/2 ML VIAL ONE (21:27)
[2019-10-25] MEDS ORDERED: Acetaminophen 325 MG TABLET PO ONE (21:49)
== END 2019-10-26 00:40 | disposition home or self-care (01) ==
LOC: 1NENULAB
PROVIDERS: ADMIT Obstetrics & Gynecology; ATTEND Obstetrics & Gynecology

== ENCOUNTER → 2019-10-30 21:40 | Observation (INO) ==
[2019-10-30 21:00] LABS: Bilirubin,Urine Negative (Negative); Blood,Urine Negative (Negative); Clarity,Urine Cloudy (Clear); Color,Urine Yellow (Yellow); Glucose,Urine (UA) Normal (Normal); Ketones,Urine Negative (Negative); Leukocyte Esterase,Urine Small (Negative); Nitrite,Urine Negative (Negative); PH,Urine 6.5 pH Units (5.0-8.0); Protein,Urine Negative (Neg-Trace); Specific Gravity,Urine 1.015 (1.010-1.025); Urobilinogen,Urine Normal (Normal)
[2019-10-30 21:02] LABS: Bacteria,Urine Few per hpf (None-Few); Hyaline Casts,Urine None Seen per lpf (None-Few); RBC,Urine 0-3 per hpf (0-3); Squamous Epithelial Cell,Urine Many per lpf (None-Few)
[~2019-10-30 21:40] MED LIST: Betamethasone Acet/SodPhos 30 MG/5 ML VIAL IM SCH
[2019-10-30 21:43] LABS: Candida DNA Not Detected (Not Detect); Gardnerella DNA Not Detected (Not Detect); Trichomonas DNA Not Detected (Not Detect)
== END | disposition home or self-care (01) ==
LOC: 1NENULAB
PROVIDERS: ADMIT Student in an Organized Health Care Education/Training Program; ATTEND Student in an Organized Health Care Education/Training Program

== ENCOUNTER → 2019-11-06 14:35 | Observation (INO) ==
[2019-11-06 12:06] LABS: Bilirubin,Urine Negative (Negative); Blood,Urine Negative (Negative); Color,Urine Yellow (Yellow); Glucose,Urine (UA) Normal (Normal); Ketones,Urine Negative (Negative); Leukocyte Esterase,Urine Negative (Negative); Nitrite,Urine Negative (Negative); Protein,Urine Negative (Neg-Trace); Specific Gravity,Urine 1.025 (1.010-1.025); Urobilinogen,Urine Normal (Normal)
[2019-11-06 12:08] LABS: Clarity,Urine Clear (Clear)
[~2019-11-06 14:35] MED LIST changes: +Acetaminophen 325 MG TABLET PO ONE; -Betamethasone Acet/SodPhos 30 MG/5 ML VIAL IM SCH; +Terbutaline 1 MG/ML VIAL SQ ONE
== END | disposition home or self-care (01) ==
LOC: 1NENULAB
PROVIDERS: ADMIT Obstetrics & Gynecology; ATTEND Obstetrics & Gynecology

== ENCOUNTER → 2019-11-12 01:56 | Observation (INO) ==
[2019-11-11 23:03] LABS: Bilirubin,Urine Negative (Negative); Blood,Urine Negative (Negative); Clarity,Urine Clear (Clear); Color,Urine Yellow (Yellow); Glucose,Urine (UA) Normal (Normal); Ketones,Urine Negative (Negative); Leukocyte Esterase,Urine Negative (Negative); Nitrite,Urine Negative (Negative); PH,Urine 5.5 pH Units (5.0-8.0); Protein,Urine Negative (Neg-Trace); Specific Gravity,Urine 1.028 (1.010-1.025); Urobilinogen,Urine Normal (Normal)
[2019-11-12 00:53] LABS: Hematocrit 34.9 % (35.3-44.9); Hemoglobin 11.6 g/dL (11.5-15.4); Mean Corpuscular HGB Conc 33.2 g/dL (31.6-35.5); Mean Corpuscular Hemoglobin 29.4 pg (28.0-33.3); Mean Corpuscular Volume 88.4 fL (83.0-100.0); Platelet Count 221 K/mcL (140-400); Red Blood Count 3.95 M/mcL (3.82-4.97); Red Cell Distribution Width 12.2 % (11.5-14.5); White Blood Count 11.1 K/mcL (4.3-11.1)
[~2019-11-12 01:56] MED LIST changes: -Acetaminophen 325 MG TABLET PO ONE; +Ringers Solution, Lactated 1,000 ML IVC SCH
== END | disposition home or self-care (01) ==
LOC: 1NENULAB
PROVIDERS: ADMIT Obstetrics & Gynecology; ATTEND Obstetrics & Gynecology

== ENCOUNTER → 2019-11-15 10:45 | Observation (INO) ==
[2019-11-15 09:51] LABS: Bilirubin,Urine Negative (Negative); Blood,Urine Negative (Negative); Color,Urine Yellow (Yellow); Glucose,Urine (UA) Normal (Normal); Ketones,Urine 40 mg/dL (Negative); Leukocyte Esterase,Urine Trace (Negative); Nitrite,Urine Negative (Negative); Protein,Urine Negative (Neg-Trace); Specific Gravity,Urine 1.012 (1.010-1.025); Urobilinogen,Urine Normal (Normal)
[2019-11-15 09:53] LABS: Bacteria,Urine None Seen per hpf (None-Few); Hyaline Casts,Urine None Seen per lpf (None-Few); RBC,Urine 0-3 per hpf (0-3); Squamous Epithelial Cell,Urine Many per lpf (None-Few); WBC,Urine 0-3 per hpf (0-3)
[2019-11-15 09:57] LABS: Clarity,Urine Clear (Clear)
[~2019-11-15 10:45] MED LIST changes: +EPHEDrine 50 MG/ML VIAL IVP PRN; +Epidural Premix (fent/bupiv) 110 ML EP SCH; -Ringers Solution, Lactated 1,000 ML IVC SCH; -Terbutaline 1 MG/ML VIAL SQ ONE
== END | disposition home or self-care (01) ==
LOC: 1NENULAB
PROVIDERS: ADMIT Obstetrics & Gynecology; ATTEND Obstetrics & Gynecology

== ENCOUNTER → 2021-11-29 21:05 | Observation (INO) ==
[2021-11-29 17:55] LABS: Bilirubin,Urine Negative (Negative); Blood,Urine Negative (Negative); Clarity,Urine Clear (Clear); Color,Urine Light-Yellow (Yellow); Glucose,Urine (UA) Normal (Normal); Ketones,Urine Negative (Negative); Leukocyte Esterase,Urine Negative (Negative); Nitrite,Urine Negative (Negative); Protein,Urine Negative (Neg-Trace); Specific Gravity,Urine 1.015 (1.010-1.025); Urobilinogen,Urine Normal (Normal)
[2021-11-29 19:13] LABS: Basophils % 0.3 %; Eosinophils # 0.1 K/mcL (0.0-0.6); Eosinophils % 0.5 %; Hematocrit 32.9 % (35.3-44.9); Immature Granulocytes % 0.6 % (0-4); Lymphocytes % 20.9 %; Mean Corpuscular HGB Conc 33.4 g/dL (31.6-35.5); Mean Corpuscular Hemoglobin 29.6 pg (28.0-33.3); Mean Corpuscular Volume 88.7 fL (83.0-100.0); Mean Platelet Volume 11.1 fL (9.4-12.4); Monocytes # 0.7 K/mcL (0.0-1.3); Monocytes % 7.2 %; Neutrophils # 6.6 K/mcL (1.6-8.9); Platelet Count 233 K/mcL (140-400); Red Blood Count 3.71 M/mcL (3.82-4.97); Red Cell Distribution Width 12.5 % (11.5-14.5); Segmented Neutrophils % 70.5 %; White Blood Count 9.3 K/mcL (4.3-11.1)
[2021-11-29 20:06] LABS: Candida DNA DETECTED (Not Detect); Gardnerella DNA Not Detected (Not Detect); Trichomonas DNA Not Detected (Not Detect)
[~2021-11-29 21:05] MED LIST changes: -EPHEDrine 50 MG/ML VIAL IVP PRN; -Epidural Premix (fent/bupiv) 110 ML EP SCH; +Ondansetron 4 MG/2 ML VIAL IVP ONE; +Ondansetron 4 MG/2 ML VIAL ONE
== END | disposition home or self-care (01) ==
LOC: 1NENULAB
PROVIDERS: ADMIT Registered Nurse; ATTEND Registered Nurse

== ENCOUNTER → 2022-01-02 22:00 | Observation (INO) ==
[2022-01-02 19:42] LABS: Bacteria,Urine Few per hpf (None-Few); Bilirubin,Urine Negative (Negative); Blood,Urine Negative (Negative); Clarity,Urine Clear (Clear); Color,Urine Yellow (Yellow); Glucose,Urine (UA) Normal (Normal); Ketones,Urine Negative (Negative); Leukocyte Esterase,Urine Small (Negative); Mucus,Urine Few per lpf (None-Few); Nitrite,Urine Negative (Negative); PH,Urine 6.5 pH Units (5.0-8.0); Protein,Urine Trace mg/dL (Neg-Trace); RBC,Urine 0-3 per hpf (0-3); Specific Gravity,Urine 1.019 (1.010-1.025); Squamous Epithelial Cell,Urine Few per hpf (None-Few); Urobilinogen,Urine Normal (Normal)
[2022-01-02 22:18] LABS: Basophils % 0.2 %; Eosinophils # 0.1 K/mcL (0.0-0.6); Eosinophils % 0.5 %; Hematocrit 31.8 % (35.3-44.9); Hemoglobin 10.6 g/dL (11.5-15.4); Immature Granulocytes % 0.4 % (0-4); Lymphocytes # 1.7 K/mcL (0.6-4.6); Lymphocytes % 15.4 %; Mean Corpuscular HGB Conc 33.3 g/dL (31.6-35.5); Mean Corpuscular Hemoglobin 28.8 pg (28.0-33.3); Mean Corpuscular Volume 86.4 fL (83.0-100.0); Mean Platelet Volume 11.2 fL (9.4-12.4); Monocytes # 0.8 K/mcL (0.0-1.3); Monocytes % 6.9 %; Neutrophils # 8.6 K/mcL (1.6-8.9); Platelet Count 192 K/mcL (140-400); Red Blood Count 3.68 M/mcL (3.82-4.97); Red Cell Distribution Width 12.1 % (11.5-14.5); Segmented Neutrophils % 76.6 %; White Blood Count 11.2 K/mcL (4.3-11.1)
== END | disposition home or self-care (01) ==
LOC: 1NENULAB
PROVIDERS: ADMIT Registered Nurse; ATTEND Registered Nurse

== ENCOUNTER 2022-01-16 13:25 | Inpatient (IN) ==
[2022-01-16 13:24] LABS: Basophils % 0.3 %; Eosinophils % 0.3 %; Hematocrit 32.8 % (35.3-44.9); Hemoglobin 11.2 g/dL (11.5-15.4); Immature Granulocytes % 0.6 % (0-4); Lymphocytes # 2.3 K/mcL (0.6-4.6); Lymphocytes % 18.4 %; Mean Corpuscular HGB Conc 34.1 g/dL (31.6-35.5); Mean Corpuscular Hemoglobin 28.4 pg (28.0-33.3); Mean Platelet Volume 10.7 fL (9.4-12.4); Monocytes # 1.4 K/mcL (0.0-1.3); Monocytes % 11.2 %; Neutrophils # 8.5 K/mcL (1.6-8.9); Platelet Count 220 K/mcL (140-400); Red Blood Count 3.95 M/mcL (3.82-4.97); Red Cell Distribution Width 12.3 % (11.5-14.5); Segmented Neutrophils % 69.2 %; White Blood Count 12.3 K/mcL (4.3-11.1)
[~2022-01-16 13:25] MED LIST changes: +*HR* Nalbuphine 10 MG/ML AMPUL IV PRN; +Azithromycin 500 MG in 0.9 % Sodium Chloride 250 ML IVPB PRN; +EPHEDrine 50 MG/ML VIAL IVP PRN; +Epidural Premix (fent/bupiv) 110 ML EP ONE; +Epidural Premix (fent/bupiv) 110 ML EP SCH; +Famotidine 20 MG/2 ML VIAL IVP PRN; +Metoclopramide 10 MG/2 ML VIAL IVP PRN; +Naloxone 0.4 MG/ML INJ IVP PRN; -Ondansetron 4 MG/2 ML VIAL IVP ONE; +Ondansetron 4 MG/2 ML VIAL IVP PRN; -Ondansetron 4 MG/2 ML VIAL ONE; +Oxytocin 30 UNIT/503 ML BAG IVC SCH; +Penicillin G Potassium 5,000,000 UNIT in 0.9 % Sodium Chloride Mini Bag 100 ML IVPB ONE; +Ringers Solution, Lactated 1,000 ML IVC SCH
[2022-01-16] MEDS ORDERED: *HR* Nalbuphine 10 MG/ML AMPUL ONE (13:32)
[2022-01-16 15:34] LABS: Amphetamine Screen,Urine Negative ng/mL (Cutoff=1000); Barbiturate Screen,Urine Negative ng/mL (Cutoff=200); Benzodiazepines Screen,Urine Negative ng/mL (Cutoff=200); Cannabinoid Screen,Urine Positive ng/mL (Cutoff = 50); Cocaine Screen,Urine Negative ng/mL (Cutoff= 300); Opiate Screen,Urine Negative ng/mL (Cutoff=300); Phencyclidine Screen,Urine Negative ng/mL (Cutoff=25)
[2022-01-16] MEDS ORDERED: Ibuprofen 600 MG TABLET PO ONE (16:06)
[2022-01-16] MEDS ORDERED: Penicillin G Potassium 2,500,000 UNIT/105 ML MLS IVPB SCH (17:15)
[2022-01-16] MEDS ORDERED: Ondansetron ODT 4 MG TAB.RAPDIS SL PRN (18:13)
[2022-01-16] MEDS ORDERED: Lanolin 7 G OINT...G. TP PRN (18:13)
[2022-01-16] MEDS ORDERED: OXYTOCIN/RINGERS LACTATE 10 UNIT/166.6 ML BAG IVC ONE (18:13)
[2022-01-16] MEDS ORDERED: Oxytocin 30 UNIT/503 ML BAG IVC SCH (18:13)
[2022-01-16] MEDS ORDERED: Benzocaine/Menthol 56 GM AEROSOL SPRAY TP PRN (18:13)
[2022-01-16] MEDS: Famotidine 20 MG TABLET PO SCH (20:29)
[2022-01-17] MEDS: Ibuprofen 600 MG TABLET PO SCH ×3 (03:20→09:24)
[2022-01-17] MEDS: Acetaminophen 325 MG TABLET PO SCH ×3 (03:20→09:25)
[2022-01-17 06:27] LABS: Basophils # 0.1 K/mcL (0.0-0.2); Basophils % 0.4 %; Eosinophils # 0.1 K/mcL (0.0-0.6); Eosinophils % 0.5 %; Hematocrit 30.1 % (35.3-44.9); Immature Granulocytes % 0.7 % (0-4); Lymphocytes # 2.4 K/mcL (0.6-4.6); Lymphocytes % 18.4 %; Mean Corpuscular HGB Conc 33.2 g/dL (31.6-35.5); Mean Corpuscular Hemoglobin 28.2 pg (28.0-33.3); Mean Platelet Volume 11.2 fL (9.4-12.4); Monocytes # 1.1 K/mcL (0.0-1.3); Monocytes % 8.7 %; Neutrophils # 9.4 K/mcL (1.6-8.9); Platelet Count 185 K/mcL (140-400); Red Blood Count 3.54 M/mcL (3.82-4.97); Red Cell Distribution Width 12.3 % (11.5-14.5); Segmented Neutrophils % 71.3 %; White Blood Count 13.1 K/mcL (4.3-11.1)
[2022-01-17 07:26] VITALS: BP 114/72; PULSE 68; TEMP 97.7; O2SAT 98
[2022-01-17] MEDS ORDERED: Prenatal Vit/FA 1 EACH TABLET PO SCH (09:00)
[2022-01-17] MEDS: Famotidine 20 MG TABLET PO SCH (09:24)
== END 2022-01-17 18:30 | disposition home or self-care (01) | DRG 806 ==
LOC: 1NENULAB → 1NENUOBS 18:24
PROVIDERS: ADMIT Registered Nurse; ATTEND Registered Nurse